=== PATIENT | female | born 1945 | race Caucasian/White ===

== ENCOUNTER 2017-11-22 15:55 | Emergency (ER) | payer MEDICARE ==
[2017-11-22 16:29] VITALS: BP 185/92
--- NOTE | 2017-11-22 17:21 | CT ---
Head CT Technique: Multiple axial sections through the brain were obtained. Intravenous contrast was not utilized. Comparison: Prior head CT exam of 02/22/15. Findings: Ventricles along with basal cisterns and sulci over the convexities are within normal limits for the patient's age. No abnormal parenchymal densities are seen. No evidence of intracranial hemorrhage. No midline shift or mass effect is seen. Small defect is identified within the medial right orbital wall most likely representing old fracture which has occurred in the interim from prior study. Small air-fluid level is noted within the sphenoid sinus. No acute calvarial abnormality is seen. Impression: 1. Defect within the medial right orbital wall most likely representing an old fracture which has occurred from prior study. 2. Small air-fluid level within the sphenoid sinus most likely due to retained secretions. 3. No acute intracranial abnormality is appreciated. Diagnostic code #2
--- NOTE | 2017-11-22 17:32 | EDM.PDOC ---
ED HPI GENERAL MEDICAL PROBLEM - General Chief Complaint: Lower Extremity Injury/Pain Stated Complaint: FELL OUTSIDE ON WEDNESDAY, NOW HAS HEADACHES/KNEE DARIEN Time Seen by Provider: 11/22/17 16:30 Source of Information: Reports: Patient, RN Notes Reviewed - History of Present Illness INITIAL COMMENTS - FREE TEXT/NARRATIVE: 72-year-old lady comes in having fallen 3 days ago. She either tripped or lost her balance falling forward injuring both knees and also injuring her right face. No LOC. She has developed a black eye on the right. She was wearing glasses. She states they were not broken. They did smash against her right face. She suffered pretty good bruise injury to her left knee. She is having pain both knees with ambulation. Been using a walker to get around. She is not developed worsening frontal headache. No nausea or vomiting. No chest pain or difficulty breathing. No hip or pelvis discomfort. 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: Acetaminophen, NSAIDS Knee Pain Score (Numeric/FACES): 5 - Related Data Allergies Allergy/AdvReac Type Severity Reaction Status Date / Time dog dander Allergy Other Verified 11/22/17 16:20 glucosamine Allergy Hives Verified 11/22/17 16:20 tetracycline Allergy Hives Verified 11/22/17 16:20 milk AdvReac Abdominal Verified 11/22/17 16:20 Pain Home Meds: Home Meds Albuterol Sulfate [Proventil Hfa] 2 puff INH Q4H PRN 09/15/16 [History] Ascorbic Acid [Vitamin C] 500 mg PO DAILY 09/15/16 [History] Calcium Carbonate/Vitamin D3 [Calcium 500 + Vit D 400] 1 tab PO DAILY 09/15/16 [ History] Clobetasol [Clobetasol 0.05%] 1 applic TOP BID PRN 09/15/16 [History] Cranberry 500 mg PO BID 09/15/16 [History] Cyanocobalamin (Vitamin B-12) [B-12] 500 mg PO BID 09/15/16 [History] Cyclobenzaprine HCl 10 mg PO TID PRN 09/15/16 [History] Flaxseed Oil [Flaxseed] 1,000 mg PO DAILY 09/15/16 [History] Lisinopril 20 mg PO DAILY 09/15/16 [History] Loratadine [Claritin] 10 mg PO DAILY 09/15/16 [History] Lysine 500 mg PO DAILY PRN 09/15/16 [History] Metoprolol Succinate 50 mg PO DAILY 09/15/16 [History] Montelukast [Singulair] 10 mg PO BEDTIME 09/15/16 [History] Multivitamin [Multi-Vitamin Daily] 1 tab PO DAILY 09/15/16 [History] [place]-3 Fatty Acids [Fish Oil] 1,000 mg PO DAILY 09/15/16 [History] Potassium 99 mg PO BID 09/15/16 [History] Simvastatin [Zocor] 20 mg PO BEDTIME 09/15/16 [History] Aspirin [Halfprin] 1 tab PO DAILY 09/16/16 [History] Ubidecarenone [Coq-10] 1 tab PO DAILY 09/16/16 [History] traMADol [Ultram] 50 mg PO Q8HR PRN #30 tab 11/22/17 [Rx] Past Medical History Cardiovascular History: Reports: High Cholesterol, Hypertension Respiratory History: Reports: Bronchitis, Recurrent Gastrointestinal History: Reports: [employer] History: Reports: Musculoskeletal History: Reports: Other (See Below) Other Musculoskeletal History: Chronic knee and ankle pain Neurological History: Reports: Head Trauma, Other (See Below) Other Neuro History: Concussion X2 in 2002 Oncologic (Cancer) History: Reports: None Dermatologic History: Reports: Other (See Below) Other Dermatologic History: herpes zoster - Infectious Disease History Infectious Disease History: Reports: Herpes - Past Surgical History HEENT Surgical History: Reports: Cataract Surgery GI Surgical History: Reports: None Female Surgical History: Reports: Section Social & Family History - Family History Family Medical History: Noncontributory - Tobacco Use Smoking Status *Q: Unknown Ever Smoked Second Hand Smoke Exposure: No - Caffeine Use Caffeine Use: Reports: None - Alcohol Use Days Per Week of Alcohol Use: 0 - Recreational Drug Use Recreational Drug Use: No Review of Systems - Review of Systems Review Of Systems: See Below Eyes: Reports: Other (This developed hematoma around right eye) Ears: Reports: No Symptoms. Denies: Dizziness Nose: Reports: No Symptoms Mouth/Throat: Reports: No Symptoms Respiratory: Denies: Shortness of Breath, Pleuritic Chest Pain Cardiovascular: Denies: Chest Pain GI/Abdominal: Denies: Abdominal Pain, Nausea, Vomiting Genitourinary: Reports: Painful Urination, Other (Voiding frequency) Musculoskeletal: Reports: Joint Pain (Bilateral knee discomfort) Skin: Reports: Bruising (Left knee, right periorbital area) Neurological: Reports: Headache ED EXAM, GENERAL - Physical Exam Exam: See Below General Appearance: Alert, Mild Distress Eye Exam: Bilateral Eye: PERRL Ears: Normal External Exam Nose: Normal Inspection Throat/Mouth: Normal Inspection Head: Facial Swelling (Minimal swelling right periorbital area, moderate bruising present), Other (No facial bony tenderness present) Neck: Supple, Full Range of Motion Respiratory/Chest: No Respiratory Distress, Lungs Clear, Normal Breath Sounds Cardiovascular: Regular Rate, Rhythm GI/Abdominal: Soft, Non-Tender Back Exam: No: CVA Tenderness (L), CVA Tenderness (R) Extremities: Normal Inspection, Joint Swelling (There is mild swelling of both knees moderate bruising left knee, tenderness medial aspect of the left knee and medial and lateral aspect of the right knee with moderate pain with motion of both knees, both joints stable). No: Leg Pain Neurological: Alert, Oriented Skin Exam: Warm, Dry, Normal Color Course - Vital Signs Last Recorded V/S: Last Vital Signs Temp 97.2 F 11/22/17 16:28 Pulse 65 11/22/17 16:28 Resp 18 11/22/17 16:28 BP 185/92 H 11/22/17 16:28 Pulse Ox 98 11/22/17 16:28 - Orders/Labs/Meds Labs: Laboratory Tests 11/22/17 Range/Units 16:57 Urine Color Light yellow (Yellow) Urine Appearance Clear (Clear) Urine pH 7.0 (5.0-8.0) Ur Specific [place] 1.015 (1.005-1.030) Urine Protein Negative (Negative) Urine Glucose (UA) Negative (Negative) Urine Ketones Negative (Negative) Urine Occult Blood Negative (Negative) Urine Nitrite Negative (Negative) Urine Bilirubin Negative (Negative) Urine Urobilinogen 0.2 (0.2-1.0) Ur Leukocyte Esterase Negative (Negative) Urine RBC Not seen (0-5) /hpf Urine WBC Not seen (0-5) /hpf Ur Epithelial Cells 0-5 (0-5) /hpf Urine Bacteria Rare (FEW) /hpf Urine Mucus Not seen (FEW) /hpf Meds: Medications Discontinued Medications Generic Name Dose Route Start Last Admin Trade Name Freq PRN Reason Stop Dose Admin Tramadol HCl 50 mg 11/22/17 18:10 Ultram PO 11/22/17 18:11 ONETIME ONE - Re-Assessments/Exams Free Text/Narrative Re-Assessment/Exam: 11/22/17 18:09. Urine is clear head CT normal. Left knee no fracture, right knee nondisplaced fracture right patella, will treat with knee immobilizer. This injury did occur 3 days ago. She is using a walker. We'll have her alternate Tylenol and tramadol as needed for pain. Discharge instructions as documented. Departure - Departure Time of Disposition: 18:12 Disposition: Home, Self-Care 01 Condition: Fair Clinical Impression: Fall Qualifiers: Encounter type: initial encounter Qualified Code(s): W19.XXXA - Unspecified fall, initial encounter Contusion of left knee Qualifiers: Encounter type: initial encounter Qualified Code(s): S80.02XA - Contusion of left knee, initial encounter Patella fracture Qualifiers: Encounter type: initial encounter Fracture type: closed Fracture morphology: unspecified fracture morphology Fracture alignment: nondisplaced Laterality: right Qualified Code(s): S82.001A - Unspecified fracture of right patella, initial encounter for closed fracture - Discharge Information Prescriptions: traMADol [Ultram] 50 mg PO Q8HR PRN #30 tab PRN Reason: Pain Referrals: Donna Dubon NP [Primary Care Provider] - Forms: ED Department Discharge Additional Instructions: Knee immobilizer. Rest and elevate leg and knee as much as possible continue to use walker to get about with the least amount weightbearing possible right leg and knee, you may alternate Tylenol and tramadol as needed for discomfort. See Jana Hatch or Dr Harris, Orthopedics, in about 3-5 days, call [phone] for appt. Return to ED as needed
--- NOTE | 2017-11-22 17:35 | CR ---
Left knee: Four views of the left knee were obtained. Comparison: No previous knee exam. Moderate to severe narrowing is seen within the lateral joint compartment. Mild narrowing of the medial joint compartment is seen. No joint effusion is seen. Bony structures are somewhat osteopenic. No acute fracture or dislocation is seen. Impression: 1. Degenerative change. Osteopenia. 2. Nothing acute is appreciated on left knee exam. Diagnostic code #2
--- NOTE | 2017-11-22 17:35 | CR ---
Right knee: Four views of the right knee were obtained. Fracture seen within the patella showing no significant displacement. Joint effusion is seen. Lateral joint space narrowing is noted with lateral osteophytes. Osteopenia is seen. No additional fracture or other abnormality is seen. Impression: 1. Patellar fracture and joint effusion. 2. Degenerative change and osteopenia. Diagnostic code #3
[2017-11-22] MEDS ORDERED: traMADol 50 MG Tab PO ONE (18:10)
== END 2017-11-22 18:42 | disposition home or self-care (01) ==
LOC: JD.ED 15:55
DX: S82.001A Unspecified fracture of right patella, initial encounter for closed fracture (principal); S80.02XA Contusion of left knee, initial encounter; S00.83XA Contusion of other part of head, initial encounter; W01.0XXA Fall on same level from slipping, tripping and stumbling without subsequent striking against object, initial encounter
CPT/HCPCS: 70450; 73564; 81001; 99284; A9270; 99283

== ENCOUNTER 2021-05-20 15:17 | Inpatient (IN) | payer MEDICARE ==
--- NOTE | 2021-05-20 15:59 | PCM.CONS ---
<Greg Gallo - Last Filed: 05/20/21 16:48> H&P History of Present Illness - General Date of Service: 05/20/21 Admit Problem/Dx: Admission Diagnosis/Problem Admission Diagnosis/Problem Hip fracture requiring operative repair Source of Information: Patient, Old Records, Provider, RN, RN Notes Reviewed History Limitations: Reports: No Limitations - History of Present Illness Initial Comments - Free Text/Narative: Hali Mccall is a 76 yo female patient of Dr. Harris who was admitted as a direct admit to the floor after a fall which occurred in [place] resulting in a right hip fracture. She reportedly rode the train to [place] where she was seen in the emergency room due to continued left ankle, right knee, and right hip pain. Twelve-lead EKG was obtained in their emergency room showing a sinus rhythm at [address] wave abnormalities. Borderline LAD. Right ankle and knee x-rays were obtained showing no acute osseous injuries or abnormalities. Pelvic CT was obtained showing impacted fracture deformity of the right femoral head neck junction. There are also small sclerotic lesions present in the ischial bones bilaterally measuring up to 5 mm and there is an 8 mm colonic lesion present within the sacrum. 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 Further assessment with bone scan or MRI may be helpful if the patient has history of primary malignancy. Lumbar spine CT was obtained showing severe compression deformity of T12 present with loss of 75% of the anterior vertebral body height. Moderate compression deformity is noted in the V1 vertebral body. No fracture lines are identified and these may be chronic. Correlation with physical exam for focal tenderness is recommended. Per the ED note multiple facilities in the region were contacted and were full. Plan was to hold the patient in the ED and try again the next day. Our facility was contacted but we did not have an orthopedist on-call until today. Patient was noted to already have an appointment today (05/20/2021) with Dr. Harris, orthopedic surgeon, regarding an unrelated left ankle pain. Patient elected to leave AMA with a prescription for Ultram for pain. She then followed up with him who directly admitted him for planned surgical fixation on 05/21/2021. Hospital medicine was consulted for preoperative risk stratification and post-operative medical care of the following listed medical conditions. At this time she is resting comf ortably in bed. Pain is controlled. She denies any any chest pain, shortness of breath, palpitations, nausea, or vomiting. She reports left ankle, right hip, and right knee pain. She carries a history of: Asthma, HLD, Pedal edema, HTN, recurrent bronchitis, GERD, chronic knee and ankle pain, history of concussion in 2002, herpes zoster, osteoarthritis, osteoporosis, anxiety. She was never a smoker. She is a full code. Her primary care provider is Collin Dubon NP. - Related Data Allergies/Adverse Reactions: Allergies Allergy/AdvReac Type Severity Reaction Status Date / Time cat dander Allergy Rash Verified 05/20/21 16:42 dog dander Allergy Other Verified 05/20/21 16:42 glucosamine Allergy Hives Verified 05/20/21 16:42 tetracycline Allergy Hives Verified 05/20/21 16:42 milk AdvReac Abdominal Verified 05/20/21 16:42 Pain Home Medications: Home Meds Albuterol Sulfate [Proventil Hfa] 2 puff INH Q4H PRN 09/15/16 [History] Ascorbic Acid [Vitamin C] 500 mg PO DAILY 09/15/16 [History] Clobetasol [Clobetasol 0.05%] 1 applic TOP BID PRN 09/15/16 [History] Cranberry 500 mg PO BID 09/15/16 [History] Cyanocobalamin (Vitamin B-12) [B-12] 500 mg PO BID 09/15/16 [History] Cyclobenzaprine HCl 10 mg PO TID PRN 09/15/16 [History] Flaxseed Oil [Flaxseed] 1,000 mg PO DAILY 09/15/16 [History] Lysine 500 mg PO DAILY PRN 09/15/16 [History] Metoprolol Succinate 50 mg PO BEDTIME 09/15/16 [History] Montelukast [Singulair] 10 mg PO BEDTIME 09/15/16 [History] Multivitamin [Multi-Vitamin Daily] 1 tab PO DAILY 09/15/16 [History] Weems-3 Fatty Acids [Fish Oil] 1,000 mg PO 12 09/15/16 [History] Potassium 99 mg PO BID 09/15/16 [History] Simvastatin [Zocor] 20 mg PO BEDTIME 09/15/16 [History] Aspirin [Halfprin] 81 mg PO BEDTIME 09/16/16 [History] Ubidecarenone [Coq-10] 1 tab PO 12 09/16/16 [History] traMADol [Ultram] 50 mg PO Q6H PRN #12 tab 05/19/21 [Rx] Cetirizine [ZyrTEC] 10 mg PO DAILY 05/20/21 [History] Cholecalciferol (Vitamin D3) [Vitamin D3] 1 tab PO DAILY 05/20/21 [History] Magnesium 1 tab PO DAILY 05/20/21 [History] Past Medical History HEENT History: Reports: None Cardiovascular History: Reports: High Cholesterol, Hypertension Respiratory History: Reports: Bronchitis, Recurrent Gastrointestinal History: Reports: GERD Genitourinary History: Reports: None [employer] History: Reports: Musculoskeletal History: Reports: Other (See Below) Other Musculoskeletal History: Chronic knee and ankle pain Neurological History: Reports: Head Trauma, Other (See Below) Other Neuro History: Concussion X2 in 2002 Psychiatric History: Reports: None Endocrine/Metabolic History: Reports: None Hematologic History: Reports: None Immunologic History: Reports: None Oncologic (Cancer) History: Reports: None Dermatologic History: Reports: Other (See Below) Other Dermatologic History: herpes zoster - Infectious Disease History Infectious Disease History: Reports: Herpes - Past Surgical History Head Surgeries/Procedures: Reports: None HEENT Surgical History: Reports: Cataract Surgery Cardiovascular Surgical History: Reports: None GI Surgical History: Reports: None Female Surgical History: Reports: Section Neurological Surgical History: Reports: None Musculoskeletal Surgical History: Reports: None Social & Family History - Family History Family Medical History: No Pertinent Family History - Caffeine Use Caffeine Use: Reports: None H&P Review of Systems - Review of Systems: Review Of Systems: See Below General: Reports: No Symptoms. Denies: Fever, Chills, Malaise, Weakness, Fatigue HEENT: Reports: No Symptoms. Denies: Headaches, Sore Throat Pulmonary: Reports: No Symptoms. Denies: Shortness of Breath, Wheezing, Pleuritic Chest Pain, Cough, Sputum Cardiovascular: Reports: Edema, Blood Pressure Problem. Denies: Chest Pain, Pal pitations, Dyspnea on Exertion Gastrointestinal: Denies: Abdominal Pain, Constipation, Diarrhea, Nausea, Vomiting Genitourinary: Reports: No Symptoms. Denies: Pain Musculoskeletal: Reports: Joint Pain (left ankle, right hip, right knee) Skin: Reports: No Symptoms. Denies: Cyanosis Psychiatric: Reports: No Symptoms. Denies: Confusion Neurological: Reports: Difficulty Walking (2/2 pain ), Gait Disturbance. Denies: Pre-Existing Deficit Hematologic/Lymphatic: Reports: No Symptoms. Denies: Anemia Immunologic: Reports: No Symptoms Exam - Exam Exam: See Below - Exam Quality Assessment: DVT Prophylaxis (SCDs). No: Supplemental Oxygen, Urinary Catheter General: Alert, Oriented, Cooperative. No: Mild Distress HEENT: Conjunctiva Clear, EACs Clear, Mucosa Moist & [place], Posterior Pharynx Clear Neck: Supple, Trachea Midline Lungs: Clear to Auscultation, Normal Respiratory Effort Cardiovascular: Regular Rate, Regular Rhythm GI/Abdominal Exam: Normal Bowel Sounds, Soft, Non-Tender, No Distention (Female) Exam: Deferred Rectal (Female) Exam: Deferred Back Exam: Normal Inspection, Full Range of Motion Extremities: Normal Inspection, Pedal Edema (3+), Leg Pain (left ankle, right hip and knee ), Limited Range of Motion (2/2 pain ) Peripheral Pulses: 2+: Radial (L), Radial (R) Skin: Warm, Dry, Intact Neurological: Cranial Nerves Intact (Grossly ) Neuro Extensive - Mental Status: Alert, Oriented x3, Normal Mood/Affect - Patient Data Result Diagrams: 05/20/21 16:02 05/20/21 16:02 Consult PN Assessment/Plan Procedures: Procedures AIRWAY INHALATION TREATMENT (09/15/16) ASSAY OF CREATININE (02/23/18) C-REACTIVE PROTEIN (10/08/16) CHEST X-RAY 2VW FRONTAL&LATL (09/15/16) COMPLETE CBC AUTOMATED (09/15/16) COMPLETE CBC W/AUTO DIFF WBC (09/15/16) COMPREHEN METABOLIC PANEL (09/15/16) CT ABD & PELV W/CONTRAST (02/23/18) CT HEAD/BRAIN W/O DYE (11/22/17) ELECTROCARDIOGRAM TRACING (09/15/16) ELECTROLYTE PANEL (09/15/16) EMERGENCY DEPT VISIT (11/22/17) EMERGENCY DEPT VISIT (09/15/16) EVALUATE PT USE OF INHALER (09/15/16) HYDRATE IV INFUSION ADD-ON (09/15/16) LAPAROSCOPY APPENDECTOMY (09/15/16) MEASURE BLOOD OXYGEN LEVEL (09/15/16) MEASURE BLOOD OXYGEN LEVEL (09/15/16) MRI JNT OF LWR EXTRE W/O DYE (04/09/21) POLYSOM 6/> YRS 4/> MOISES (02/15/19) PT EVALUATION (09/15/16) ROUTINE VENIPUNCTURE (02/23/18) THER/PROPH/DIAG IV INF INIT (09/15/16) TISSUE EXAM BY PATHOLOGIST (09/15/16) TX/PROPH/DG ADDL SEQ IV INF (09/15/16) URINALYSIS AUTO W/SCOPE (11/22/17) URINE BACTERIA CULTURE (03/15/14) X-RAY EXAM KNEE 4 OR MORE (11/22/17) X-RAY EXAM OF ABDOMEN (09/15/16) (1) Closed right hip fracture SNOMED Code(s): 682297168 Code(s): S72.001A - FRACTURE OF UNSP PART OF NECK OF RIGHT FEMUR, INIT Priority: High Current Visit: Yes Qualifiers: Encounter type: initial encounter Qualified Code(s): S72.001A - Fracture of unspecified part of neck of right femur, initial encounter for closed fracture (2) Osteoporosis SNOMED Code(s): 64582846 Code(s): M81.0 - AGE-RELATED OSTEOPOROSIS W/O CURRENT PATHOLOGICAL FRACTURE Priority: High Current Visit: Yes Qualifiers: Osteoporosis type: unspecified Presence of current pathological fracture: without current pathological fracture Qualified Code(s): M81.0 - Age-related osteoporosis without current pathological fracture (3) Asthma SNOMED Code(s): 202945402 Code(s): J45.909 - UNSPECIFIED ASTHMA, UNCOMPLICATED Priority: Medium Current Visit: No Qualifiers: Asthma severity: unspecified severity Asthma persistence: unspecified A sthma complication type: uncomplicated Qualified Code(s): J45.909 - Unspecified asthma, uncomplicated (4) HLD (hyperlipidemia) SNOMED Code(s): 72497301 Code(s): E78.5 - HYPERLIPIDEMIA, UNSPECIFIED Priority: Low Current Visit: No Qualifiers: Hyperlipidemia type: unspecified Qualified Code(s): E78.5 - Hyperlipidemia, unspecified (5) HTN (hypertension) SNOMED Code(s): 30129180 Code(s): I10 - ESSENTIAL (PRIMARY) HYPERTENSION Priority: Medium Current Visit: No Qualifiers: Hypertension type: unspecified Qualified Code(s): I10 - Essential (primary) hypertension (6) GERD (gastroesophageal reflux disease) SNOMED Code(s): 467426207 Code(s): K21.9 - GASTRO-ESOPHAGEAL REFLUX DISEASE WITHOUT ESOPHAGITIS Priority: Low Current Visit: No Qualifiers: Esophagitis presence: esophagitis presence not specified Qualified Code(s): K21.9 - Gastro-esophageal reflux disease without esophagitis (7) Chronic knee pain SNOMED Code(s): 0154438657 Code(s): M25.569 - PAIN IN UNSPECIFIED KNEE; G89.29 - OTHER CHRONIC PAIN Priority: Low Current Visit: No Qualifiers: Laterality: unspecified laterality Qualified Code(s): M25.569 - Pain in unspecified knee; G89.29 - Other chronic pain (8) Chronic ankle pain SNOMED Code(s): 56286523878015 Code(s): M25.579 - PAIN IN UNSPECIFIED ANKLE AND JOINTS OF UNSPECIFIED FOOT; G89.29 - OTHER CHRONIC PAIN Priority: Low Current Visit: No Qualifiers: Laterality: unspecified laterality Qualified Code(s): M25.579 - Pain in unspecified ankle and joints of unspecified foot; G89.29 - Other chronic pain (9) History of concussion SNOMED Code(s): 93901133384953009 Code(s): Z87.820 - PERSONAL HISTORY OF TRAUMATIC BRAIN INJURY Priority: Low Current Visit: No (10) History of herpes zoster SNOMED Code(s): 366073325748058 Code(s): Z86.19 - PERSONAL HISTORY OF OTHER INFECTIOUS AND PARASITIC DISEASES Priority: Low Current Visit: No (11) Osteoarthritis SNOMED Code(s): 281710951 Code(s): M19.90 - UNSPECIFIED OSTEOARTHRITIS, UNSPECIFIED SITE Priority: Medium Current Visit: Yes Qualifiers: Osteoarthritis location: multiple joints Osteoarthritis type: primary Qualified Code(s): M89.49 - Other hypertrophic osteoarthropathy, multiple sites (12) Abnormal CT scan SNOMED Code(s): 852804224 Code(s): R93.89 - ABNORMAL FINDINGS ON DX IMAGING OF OTH BODY STRUCTURES Priority: Medium Current Visit: Yes Problem List Initiated/Reviewed/Updated: Yes My Orders Last 24 Hours: My Active Orders 05/20/21 15:29 CBC WITH AUTO DIFF [HEME] Routine COMPREHENSIVE METABOLIC PN,CMP [CHEM] Routine TSH [CHEM] Routine TYPE AND SCREEN [BBK] Routine 05/20/21 15:51 CXR [Chest 2V] [CR] Routine Plan: Closed right hip fracture Osteoporosis Osteoarthritis Chronic knee pain Chronic ankle pain * SCDs for now with primary team to manage DVT prophylaxis from here out * Pain management per primary team * Surgery planned for 05/20/[address] Harris * NPO at midnight * Reconcile home medications * O2 if needed to keep saturations >90% * Check CBC, CMP, TSH * Check CXR * 12-Lead EKG from [facility] in [place] reviewed * IS * Bedrest until post-surgical * CM/SW for discharge planning * PT/OT post-surgically * Surgical Risk: * NSQIP: 3.4% serious complication, 3.9% any complication, 0.2% pneumonia, 0.2% cardiac complication, 0.1% * Based on the information present at this time, including patient's chronic conditions and age, she is low to moderate risk for total hip arthroplasty. Abnormal CT scan * Sclerotic lesions noted on ischial bones bilaterally from hip CT obtained in [place] * PCP follow-up Asthma * One view CXR now * PRN Duonebs * Home respiratory meds HLD (hyperlipidemia) HTN (hypertension) * No acute concerns * Home meds as ordered GERD (gastroesophageal reflux disease) * No acute concerns History of concussion * No acute concerns Anxiety * No acute concerns History of herpes zoster * No acute concerns Code status: Full code PCP: Collin Dubon NP DVT prophylaxis: SCDs Disposition: Patient admitted through orthopedics to the medical surgical floor for planned surgical fixation of right hip fracture on 05/21/2021. Hospitalist medicine team consulted for risk stratification and postoperative medical management. Length of stay likely 1 to 2 days. Thank you for allowing us to participate in the care of this patient!! Requesting Provider: Dr. Harris Date Consult Requested: 05/20/21 Patient History Reviewed: Yes Admission H&P Reviewed: Yes Notified Requestor: Yes <Fan Fenton Jr - Last Filed: 05/20/21 18:57> H&P History of Present Illness - General Admit Problem/Dx: Admission Diagnosis/Problem Admission Diagnosis/Problem Hip fracture requiring operative repair Exam - Vital Signs Vital Signs: Last Vital Signs Temp 98.2 F 05/20/21 15:51 Pulse 57 L 05/20/21 15:51 Resp 20 05/20/21 15:51 BP 131/60 05/20/21 15:51 Pulse Ox 94 L 05/20/21 15:51 - Patient Data Lab Results Last 24 hrs: Laboratory Results - last 24 hr 05/20/21 05/20/21 05/20/21 Range/Units 16:02 16:02 16:02 WBC 5.86 (3.98-10.04) K/mm3 RBC 4.26 (3.98-5.22) M/mm3 Hgb 12.2 D (11.2-15.7) gm/dl Hct 37.9 (34.1-44.9) % MCV 89.0 (79.4-94.8) fl MCH 28.6 (25.6-32.2) pg MCHC 32.2 (32.2-35.5) g/dl RDW Std Deviation 43.9 (36.4-46.3) fL Plt Count 169 L D (182-369) K/mm3 MPV 10.3 (9.4-12.3) fl Neut % (Auto) 59.0 (34.0-71.1) % Lymph % (Auto) 27.5 (19.3-51.7) % [place]rentiss % (Auto) 8.4 (4.7-12.5) % Eos % (Auto) 4.9 (0.7-5.8) Baso % (Auto) 0.2 (0.1-1.2) % Neut # (Auto) 3.46 (1.56-6.13) K/mm3 Lymph # (Auto) 1.61 (1.18-3.74) K/mm3 [place]iss # (Auto) 0.49 H (0.24-0.36) K/mm3 Eos # (Auto) 0.29 (0.04-0.36) K/mm3 Baso # (Auto) 0.01 (0.01-0.08) K/mm3 PT (9.7-12.0) SECONDS INR Sodium 139 (136-145) mEq/L Potassium 3.9 (3.5-5.1) mEq/L Chloride 103 (98-107) mEq/L Carbon Dioxide 26 (21-32) mEq/L Anion Gap 13.9 (5-15) BUN 16 (7-18) mg/dL Creatinine 0.8 (0.55-1.02) mg/dL Est Cr Clr Drug Dosing 54.25 mL/min Estimated GFR (MDRD) > 60 (>60) mL/min BUN/Creatinine Ratio 20.0 H (14-18) Glucose 92 (70-99) mg/dL Calcium 9.4 (8.5-10.1) mg/dL Total Bilirubin 2.4 H (0.2-1.0) mg/dL AST 19 (15-37) U/L ALT 18 (14-59) U/L Alkaline Phosphatase 42 L (46-116) U/L Total Protein 6.7 (6.4-8.2) g/dl Albumin 3.7 (3.4-5.0) g/dl Globulin 3.0 gm/dL Albumin/Globulin Ratio 1.2 (1-2) TSH 3rd Generation 2.149 (0.358-3.74) uIU/mL Blood Type A POSITIVE Gel Antibody Screen Negative 05/20/21 Range/Units 16:02 WBC (3.98-10.04) K/mm3 RBC (3.98-5.22) M/mm3 Hgb (11.2-15.7) gm/dl Hct (34.1-44.9) % MCV (79.4-94.8) fl MCH (25.6-32.2) pg MCHC (32.2-35.5) g/dl RDW Std Deviation (36.4-46.3) fL Plt Count (182-369) K/mm3 MPV (9.4-12.3) fl Neut % (Auto) (34.0-71.1) % Lymph % (Auto) (19.3-51.7) % [place] % (Auto) (4.7-12.5) % Eos % (Auto) (0.7-5.8) Baso % (Auto) (0.1-1.2) % Neut # (Auto) (1.56-6.13) K/mm3 Lymph # (Auto) (1.18-3.74) K/mm3 [place]rentiss # (Auto) (0.24-0.36) K/mm3 Eos # (Auto) (0.04-0.36) K/mm3 Baso # (Auto) (0.01-0.08) K/mm3 PT 10.6 (9.7-12.0) SECONDS INR 0.99 Sodium (136-145) mEq/L Potassium (3.5-5.1) mEq/L Chloride (98-107) mEq/L Carbon Dioxide (21-32) mEq/L Anion Gap (5-15) BUN (7-18) mg/dL Creatinine (0.55-1.02) mg/dL Est Cr Clr Drug Dosing mL/min Estimated GFR (MDRD) (>60) mL/min BUN/Creatinine Ratio (14-18) Glucose (70-99) mg/dL Calcium (8.5-10.1) mg/dL Total Bilirubin (0.2-1.0) mg/dL AST (15-37) U/L ALT (14-59) U/L Alkaline Phosphatase (46-116) U/L Total Protein (6.4-8.2) g/dl Albumin (3.4-5.0) g/dl Globulin gm/dL Albumin/Globulin Ratio (1-2) TSH 3rd Generation (0.358-3.74) uIU/mL Blood Type Gel Antibody Screen Result Diagrams: 05/20/21 16:02 05/20/21 16:02 Sepsis Event Note - Focused Exam Vital Signs: Vital Signs Temp Pulse Resp BP Pulse Ox 05/20/21 15:51 98.2 F 57 L 20 131/60 94 L Consult PN Assessment/Plan Procedures: Procedures AIRWAY INHALATION TREATMENT (09/15/16) ASSAY OF CREATININE (02/23/18) C-REACTIVE PROTEIN (10/08/16) CHEST X-RAY 2VW FRONTAL&LATL (09/15/16) COMPLETE CBC AUTOMATED (09/15/16) COMPLETE CBC W/AUTO DIFF WBC (09/15/16) COMPREHEN METABOLIC PANEL (09/15/16) CT ABD & PELV W/CONTRAST (02/23/18) CT HEAD/BRAIN W/O DYE (11/22/17) ELECTROCARDIOGRAM TRACING (09/15/16) ELECTROLYTE PANEL (09/15/16) EMERGENCY DEPT VISIT (11/22/17) EMERGENCY DEPT VISIT (09/15/16) EVALUATE PT USE OF INHALER (09/15/16) HYDRATE IV INFUSION ADD-ON (09/15/16) LAPAROSCOPY APPENDECTOMY (09/15/16) MEASURE BLOOD OXYGEN LEVEL (09/15/16) MEASURE BLOOD OXYGEN LEVEL (09/15/16) MRI JNT OF LWR EXTRE W/O DYE (04/09/21) POLYSOM 6/> YRS 4/> MOISES (02/15/19) PT EVALUATION (09/15/16) ROUTINE VENIPUNCTURE (02/23/18) THER/PROPH/DIAG IV INF INIT (09/15/16) TISSUE EXAM BY PATHOLOGIST (09/15/16) TX/PROPH/DG ADDL SEQ IV INF (09/15/16) URINALYSIS AUTO W/SCOPE (11/22/17) URINE BACTERIA CULTURE (03/15/14) X-RAY EXAM KNEE 4 OR MORE (11/22/17) X-RAY EXAM OF ABDOMEN (09/15/16) Plan: Case discussed in full. Agree with evaluation, assessment and plan.
[2021-05-20] MEDS ORDERED: Sodium Chloride 0.9% 10 ML Syringe FLUSH PRN (16:32)
[2021-05-20] MEDS ORDERED: Docusate Sodium 100 MG Cap PO PRN (16:32)
[2021-05-20] MEDS ORDERED: Albuterol/Ipratropium 3.0-0.5 MG/3 ML Neb Soln NEB PRN (16:32)
--- NOTE | 2021-05-20 16:35 | PCM.PREANE ---
Preanesthetic Assessment - Procedure Proposed Procedure: Right total hip arthroplasty - Anesthesia/Transfusion/Family Hx Anesthesia History: Prior Anesthesia Without Reaction Family History of Anesthesia Reaction: No Transfusion History: No Prior Transfusion(s) Intubation History: Unknown - Review of Systems General: No Symptoms Pulmonary: No Symptoms Cardiovascular: No Symptoms Gastrointestinal: No Symptoms Neurological: Headache (Occasional, no headache currently) Other: Reports: Easy Bruising (Pre-diabetic per patient), Neck Pain, Anxiety - Physical Assessment NPO Status Date: 05/20/21 NPO Status Time: 16:30 Vital Signs: 131/60 HR 57 98.3 20 RR 90% RA Height: 1.68 m Weight: 89.5 kg ASA Class: 3 Mental Status: Alert & Oriented x3 Airway Class: Mallampati = 1 Dentition: Reports: [place](s), [place] Thyro-Mental Finger Breadths: 3 Mouth Opening Finger Breadths: 3 ROM/Head Extension: Full Lungs: Clear to Auscultation, Normal Respiratory Effort Cardiovascular: Regular Rate, Regular Rhythm, No Murmurs - Lab Values: Laboratory Last Values WBC 5.86 K/mm3 (3.98-10.04) 05/20/21 16:02 RBC 4.26 M/mm3 (3.98-5.22) 05/20/21 16:02 Hgb 12.2 gm/dl (11.2-15.7) D 05/20/21 16:02 Hct 37.9 % (34.1-44.9) 05/20/21 16:02 MCV 89.0 fl (79.4-94.8) 05/20/21 16:02 MCH 28.6 pg (25.6-32.2) 05/20/21 16:02 MCHC 32.2 g/dl (32.2-35.5) 05/20/21 16:02 RDW Std Deviation 43.9 fL (36.4-46.3) 05/20/21 16:02 Plt Count 169 K/mm3 (182-369) L D 05/20/21 16:02 MPV 10.3 fl (9.4-12.3) 05/20/21 16:02 Neut % (Auto) 59.0 % (34.0-71.1) 05/20/21 16:02 Lymph % (Auto) 27.5 % (19.3-51.7) 05/20/21 16:02 [place] % (Auto) 8.4 % (4.7-12.5) 05/20/21 16:02 Eos % (Auto) 4.9 (0.7-5.8) 05/20/21 16:02 Baso % (Auto) 0.2 % (0.1-1.2) 05/20/21 16:02 Neut # (Auto) 3.46 K/mm3 (1.56-6.13) 05/20/21 16:02 Lymph # (Auto) 1.61 K/mm3 (1.18-3.74) 05/20/21 16:02 Wolfe # (Auto) 0.49 K/mm3 (0.24-0.36) H 05/20/21 16:02 Eos # (Auto) 0.29 K/mm3 (0.04-0.36) 05/20/21 16:02 Baso # (Auto) 0.01 K/mm3 (0.01-0.08) 05/20/21 16:02 Labs reviewed and okay to proceed, CMP also posted. Awaiting Type and Screen lab results - Imaging/EKG Impressions: EKG 05/19/21: NSR HR 68 Chest x-ray completed 05/20/21 but awaiting results, will review when results posted. - Allergies Allergies/Adverse Reactions: Allergies Allergy/AdvReac Type Severity Reaction Status Date / Time cat dander Allergy Rash Verified 05/20/21 16:42 dog dander Allergy Other Verified 05/20/21 16:42 glucosamine Allergy Hives Verified 05/20/21 16:42 tetracycline Allergy Hives Verified 05/20/21 16:42 milk AdvReac Abdominal Verified 05/20/21 16:42 Pain - Blood Blood Available: Yes - Anesthesia Plan Beta Michael: Metoprolol (Plan to take tomorrow morning (05/21/21)) - Acknowledgements Anesthesia Type Planned: General Anesthesia Pt an Appropriate Candidate for the Planned Anesthesia: Yes Alternatives and Risks of Anesthesia Discussed w Pt/Guardian: Yes Pt/Guardian Understands and Agrees with Anesthesia Plan: Yes Additional Comments: Patient prefers general over a spinal PreAnesthesia Questionnaire HEENT History: Reports: None Cardiovascular History: Reports: High Cholesterol, Hypertension Respiratory History: Reports: Asthma, Bronchitis, Recurrent Gastrointestinal History: Reports: GERD Genitourinary History: Reports: None 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 Hematologic History: Reports: None Immunologic History: Reports: None Oncologic (Cancer) History: Reports: None Dermatologic History: Reports: Other (See Below) Other Dermatologic History: herpes zoster - Infectious Disease History Infectious Disease History: Reports: Herpes - Past Surgical History Head Surgeries/Procedures: Reports: None HEENT Surgical History: Reports: Cataract Surgery Cardiovascular Surgical History: Reports: None GI Surgical History: Reports: Appendectomy Female Surgical History: Reports: Section, D&C Neurological Surgical History: Reports: None Musculoskeletal Surgical History: Reports: None - SUBSTANCE USE Tobacco Use Status *Q: Never Tobacco User Tobacco Use Within Last Twelve Months: No Second Hand Smoke Exposure: No Days Per Week of Alcohol Use: 0 Number of Drinks Per Day: 0 Total Drinks Per Week: 0 Recreational Drug Use History: No - HOME MEDS Home Medications: Home Meds Albuterol Sulfate [Proventil Hfa] 2 puff INH Q4H PRN 09/15/16 [History] Ascorbic Acid [Vitamin C] 500 mg PO DAILY 09/15/16 [History] Calcium Carbonate/Vitamin D3 [Calcium 500 + Vit D 400] 1 tab PO DAILY 09/15/16 [History] Clobetasol [Clobetasol 0.05%] 1 applic TOP BID PRN 09/15/16 [History] Cranberry 500 mg PO BID 09/15/16 [History] Cyanocobalamin (Vitamin B-12) [B-12] 500 mg PO BID 09/15/16 [History] Cyclobenzaprine HCl 10 mg PO TID PRN 09/15/16 [History] Flaxseed Oil [Flaxseed] 1,000 mg PO DAILY 09/15/16 [History] Lisinopril 20 mg PO DAILY 09/15/16 [History] Loratadine [Claritin] 10 mg PO DAILY 09/15/16 [History] Lysine 500 mg PO DAILY PRN 09/15/16 [History] Metoprolol Succinate 50 mg PO DAILY 09/15/16 [History] Montelukast [Singulair] 10 mg PO BEDTIME 09/15/16 [History] Multivitamin [Multi-Vitamin Daily] 1 tab PO DAILY 09/15/16 [History] [place]-3 Fatty Acids [Fish Oil] 1,000 mg PO DAILY 09/15/16 [History] Potassium 99 mg PO BID 09/15/16 [History] Simvastatin [Zocor] 20 mg PO BEDTIME 09/15/16 [History] Aspirin [Halfprin] 1 tab PO DAILY 09/16/16 [History] Ubidecarenone [Coq-10] 1 tab PO DAILY 09/16/16 [History] traMADol [Ultram] 50 mg PO Q8HR PRN #30 tab 11/22/17 [Rx] traMADol [Ultram] 50 mg PO Q6H PRN #12 tab 05/19/21 [Rx]
[2021-05-20] MEDS ORDERED: Cyclobenzaprine 10 MG Tab PO PRN (16:53)
[2021-05-20] MEDS ORDERED: Naloxone 0.4 MG/ML SDV IVPUSH PRN (16:53)
[2021-05-20] MEDS ORDERED: oxyCODONE 5 MG Tab PO PRN (16:53)
[2021-05-20] MEDS ORDERED: Ondansetron 4 MG/2 ML SDV IVPUSH PRN (16:53)
[2021-05-20] MEDS ORDERED: Albuterol 6.7 GM Inhaler INH PRN (17:00)
[2021-05-20] MEDS: traMADol 50 MG Tab PO PRN (18:16)
--- NOTE | 2021-05-20 18:50 | CR ---
Chest: Portable view of the chest was obtained. Comparison: Prior chest x-ray of 09/15/16. Heart size is within normal limits for portable technique. Tortuous thoracic aorta is seen. Lungs are clear with no acute parenchymal change. Bony structures are osteopenic. Impression: 1. Nothing acute is appreciated on portable chest x-ray. Diagnostic code #1
[2021-05-20] MEDS: Potassium Chloride 20 MEQ Tab.ER PO SCH (20:16)
[2021-05-20] MEDS: Montelukast 10 MG Tab PO SCH (20:16)
[2021-05-20] MEDS ORDERED: Metoprolol Succinate 50 MG Tab.ER PO SCH (21:00)
[2021-05-20] MEDS: Acetaminophen 325 MG Tab PO PRN (22:18)
[2021-05-21] MEDS: traMADol 50 MG Tab PO PRN ×2 (02:15→20:29)
--- NOTE | 2021-05-21 07:22 | PCM.CONSN ---
<Greg Gallo - Last Filed: 05/21/21 09:34> - General Info Date of Service: 05/21/21 Admission Dx/Problem (Free Text): Admission Diagnosis/Problem Admission Diagnosis/Problem Hip fracture requiring operative repair Functional Status: Reports: Pain Controlled, Tolerating Diet, Urinating, Incentive Spirometry. Denies: Ambulating, New Symptoms - Review of Systems General: Reports: No Symptoms. Denies: Fever, Weakness, Fatigue, Malaise, Chills HEENT: Reports: No Symptoms. Denies: Headaches, Sore Throat Pulmonary: Reports: No Symptoms. Denies: Shortness of Breath, Cough, Sputum, Wheezing Cardiovascular: Reports: Edema (Chronic ). Denies: Chest Pain, Palpitations, Dyspnea on Exertion Gastrointestinal: Reports: No Symptoms. Denies: Abdominal Pain, Constipation, Diarrhea, Nausea, Vomiting Genitourinary: Reports: No Symptoms. Denies: Pain Musculoskeletal: Reports: Leg Pain, Joint Pain (right hip, right knee, left ankle ) Skin: Reports: No Symptoms. Denies: Cyanosis Neurological: Reports: Difficulty Walking, Weakness, Gait Disturbance. Denies: Confusion, Dizziness, Headache, Numbness, Pre-Existing Deficit, Seizure, Syncope, Tingling Psychiatric: Reports: No Symptoms - Patient Data Vitals - Most Recent: Last Vital Signs Temp 97.9 F 05/20/21 20:26 Pulse 62 05/20/21 20:26 Resp 18 05/20/21 20:26 BP 146/99 H 05/20/21 20:26 Pulse Ox 95 05/20/21 20:26 Weight - Most Recent: 201 lb 4.8 oz I&O - Last 24 Hours: Intake & Output 05/20/21 05/21/21 05/21/21 22:59 06:59 14:59 Output Total 600 Balance -600 Lab Results Last 24 Hours: Laboratory Results - last 24 hr 05/20/21 05/20/21 05/20/21 Range/Units 16:02 16:02 16:02 WBC 5.86 (3.98-10.04) K/mm3 RBC 4.26 (3.98-5.22) M/mm3 Hgb 12.2 D (11.2-15.7) gm/dl Hct 37.9 (34.1-44.9) % MCV 89.0 (79.4-94.8) fl MCH 28.6 (25.6-32.2) pg MCHC 32.2 (32.2-35.5) g/dl RDW Std Deviation 43.9 (36.4-46.3) fL Plt Count 169 L D (182-369) K/mm3 MPV 10.3 (9.4-12.3) fl Neut % (Auto) 59.0 (34.0-71.1) % Lymph % (Auto) 27.5 (19.3-51.7) % [place] % (Auto) 8.4 (4.7-12.5) % Eos % (Auto) 4.9 (0.7-5.8) Baso % (Auto) 0.2 (0.1-1.2) % Neut # (Auto) 3.46 (1.56-6.13) K/mm3 Lymph # (Auto) 1.61 (1.18-3.74) K/mm3 [place] # (Auto) 0.49 H (0.24-0.36) K/mm3 Eos # (Auto) 0.29 (0.04-0.36) K/mm3 Baso # (Auto) 0.01 (0.01-0.08) K/mm3 PT (9.7-12.0) SECONDS INR Sodium 139 (136-145) mEq/L Potassium 3.9 (3.5-5.1) mEq/L Chloride 103 (98-107) mEq/L Carbon Dioxide 26 (21-32) mEq/L Anion Gap 13.9 (5-15) BUN 16 (7-18) mg/dL Creatinine 0.8 (0.55-1.02) mg/dL Est Cr Clr Drug Dosing 54.25 mL/min Estimated GFR (MDRD) > 60 (>60) mL/min BUN/Creatinine Ratio 20.0 H (14-18) Glucose 92 (70-99) mg/dL Calcium 9.4 (8.5-10.1) mg/dL Total Bilirubin 2.4 H (0.2-1.0) mg/dL AST 19 (15-37) U/L ALT 18 (14-59) U/L Alkaline Phosphatase 42 L (46-116) U/L Total Protein 6.7 (6.4-8.2) g/dl Albumin 3.7 (3.4-5.0) g/dl Globulin 3.0 gm/dL Albumin/Globulin Ratio 1.2 (1-2) TSH 3rd Generation 2.149 (0.358-3.74) uIU/mL SARS-CoV-2 RNA ([facility]) (NEGATIVE) MRSA (PCR) Blood Type A POSITIVE Gel Antibody Screen Negative 05/20/21 05/20/21 05/20/21 Range/Units 16:02 18:20 18:20 WBC (3.98-10.04) K/mm3 RBC (3.98-5.22) M/mm3 Hgb (11.2-15.7) gm/dl Hct (34.1-44.9) % MCV (79.4-94.8) fl MCH (25.6-32.2) pg MCHC (32.2-35.5) g/dl RDW Std Deviation (36.4-46.3) fL Plt Count (182-369) K/mm3 MPV (9.4-12.3) fl Neut % (Auto) (34.0-71.1) % Lymph % (Auto) (19.3-51.7) % [place] % (Auto) (4.7-12.5) % Eos % (Auto) (0.7-5.8) Baso % (Auto) (0.1-1.2) % Neut # (Auto) (1.56-6.13) K/mm3 Lymph # (Auto) (1.18-3.74) K/mm3 [place] # (Auto) (0.24-0.36) K/mm3 Eos # (Auto) (0.04-0.36) K/mm3 Baso # (Auto) (0.01-0.08) K/mm3 PT 10.6 (9.7-12.0) SECONDS INR 0.99 Sodium (136-145) mEq/L Potassium (3.5-5.1) mEq/L Chloride (98-107) mEq/L Carbon Dioxide (21-32) mEq/L Anion Gap (5-15) BUN (7-18) mg/dL Creatinine (0.55-1.02) mg/dL Est Cr Clr Drug Dosing mL/min Estimated GFR (MDRD) (>60) mL/min BUN/Creatinine Ratio (14-18) Glucose (70-99) mg/dL Calcium (8.5-10.1) mg/dL Total Bilirubin (0.2-1.0) mg/dL AST (15-37) U/L ALT (14-59) U/L Alkaline Phosphatase (46-116) U/L Total Protein (6.4-8.2) g/dl Albumin (3.4-5.0) g/dl Globulin gm/dL Albumin/Globulin Ratio (1-2) TSH 3rd Generation (0.358-3.74) uIU/mL SARS-CoV-2 RNA ([facility]) Negative (NEGATIVE) MRSA (PCR) Negative Blood Type Gel Antibody Screen Med Orders - Current: Current Medications Acetaminophen (Acetaminophen 325 Mg Tab) 650 mg PO Q4H PRN PRN Reason: Pain/Fever Last Admin: 05/20/21 22:18 Dose: 650 mg Documented by: Albuterol (Albuterol 0.083% 2.5 Mg/3 Ml Neb Soln) 2.5 mg NEB ONETIME ONE Stop: 05/21/21 10:31 Albuterol (Albuterol 6.7 Gm Inhaler) 0 gm INH Q4H PRN PRN Reason: Shortness of Breath Albuterol/Ipratropium (Albuterol/Ipratropium 3.0-0.5 Mg/3 Ml Neb Soln) 3 ml NEB QIDRT PRN PRN Reason: Shortness Of Breath/wheezing Cyanocobalamin (Cyanocobalamin (Vitamin B12) 1,000 Mcg Tab) 1,000 mcg PO DAILY [facility] Cyclobenzaprine HCl (Cyclobenzaprine 10 Mg Tab) 10 mg PO TID PRN PRN Reason: Spasms Docusate Sodium (Docusate Sodium 100 Mg Cap) 100 mg PO Q12H PRN PRN Reason: Constipation Magnesium Oxide (Magnesium Oxide 400 Mg Tab) 400 mg PO DAILY [facility] Metoprolol Succinate (Metoprolol Succinate 50 Mg Tab.Er) 50 mg PO BEDTIME CHETNA Metoprolol Succinate (Metoprolol Succinate 50 Mg Tab.Er) 50 mg PO ONETIME ONE Stop: 05/21/21 09:01 Montelukast Sodium (Montelukast 10 Mg Tab) 10 mg PO BEDTIME CHETNA Last Admin: 05/20/21 20:16 Dose: 10 mg Documented by: Multivitamins/Minerals/Vitamin C (Multivitamin Tab) 1 tab PO DAILY [facility] Naloxone HCl (Naloxone 0.4 Mg/Ml Sdv) 0.1 mg IVPUSH Q5M PRN PRN Reason: Oversedation Ondansetron HCl (Ondansetron 4 Mg/2 Ml Sdv) 4 mg IVPUSH Q6H PRN PRN Reason: Nausea/Vomiting Potassium Chloride (Potassium Chloride 20 Meq Tab.Er) 20 meq PO BID CHETNA Last Admin: 05/20/21 20:16 Dose: 20 meq Documented by: Sodium Chloride (Sodium Chloride 0.9% 10 Ml Syringe) 10 ml FLUSH ASDIRECTED PRN PRN Reason: Keep Vein Open Tramadol HCl (Tramadol 50 Mg Tab) 50 - 100 mg PO Q6H PRN PRN Reason: Pain Last Admin: 05/21/21 02:15 Dose: 50 mg Documented by: Discontinued Medications Oxycodone HCl (Oxycodone 5 Mg Tab) 5 - 10 mg PO Q6H PRN PRN Reason: Pain - Exam Quality Assessment: Supplemental Oxygen, DVT Prophylaxis General: Alert, Oriented, Cooperative, No Acute Distress HEENT: Pupils Equal, Pupils Reactive, Mucous Membr. Moist/[place] Neck: Supple, Trachea Midline Lungs: Clear to Auscultation, Normal Respiratory Effort Cardiovascular: Regular Rate, Regular Rhythm GI/Abdominal Exam: Normal Bowel Sounds, Soft, Non-Tender, No Distention (Female) Exam: Deferred Back Exam: Normal Inspection, Decreased Range of Motion Extremities: Non-Tender, Normal Capillary Refill, Pedal Edema (2-3+ with L>R), Limited Range of Motion (2/2 pain from hip fx ) Peripheral Pulses: 2+: Dorsalis Pedis (L), Dorsalis Pedis (R), 3+: Radial (L), Radial (R) Skin: Warm, Dry, Intact Neurological: No New Focal Deficit Psy/Mental Status: Alert, Normal Affect, Normal Mood Sepsis Event Note - Evaluation Sepsis Screening Result: No Definite Risk - Focused Exam Vital Signs: Vital Signs Temp Pulse Resp BP Pulse Ox 05/20/21 20:26 97.9 F 62 18 146/99 H 95 Consult PN Assessment/Plan Procedures: Procedures AIRWAY INHALATION TREATMENT (09/15/16) ASSAY OF CREATININE (02/23/18) C-REACTIVE PROTEIN (10/08/16) CHEST X-RAY 2VW FRONTAL&LATL (09/15/16) COMPLETE CBC AUTOMATED (09/15/16) COMPLETE CBC W/AUTO DIFF WBC (09/15/16) COMPREHEN METABOLIC PANEL (09/15/16) CT ABD & PELV W/CONTRAST (02/23/18) CT HEAD/BRAIN W/O DYE (11/22/17) ELECTROCARDIOGRAM TRACING (09/15/16) ELECTROLYTE PANEL (09/15/16) EMERGENCY DEPT VISIT (11/22/17) EMERGENCY DEPT VISIT (09/15/16) EVALUATE PT USE OF INHALER (09/15/16) HYDRATE IV INFUSION ADD-ON (09/15/16) LAPAROSCOPY APPENDECTOMY (09/15/16) MEASURE BLOOD OXYGEN LEVEL (09/15/16) MEASURE BLOOD OXYGEN LEVEL (09/15/16) MRI JNT OF LWR EXTRE W/O DYE (04/09/21) POLYSOM 6/> YRS 4/> MOISES (02/15/19) PT EVALUATION (09/15/16) ROUTINE VENIPUNCTURE (02/23/18) THER/PROPH/DIAG IV INF INIT (09/15/16) TISSUE EXAM BY PATHOLOGIST (09/15/16) TX/PROPH/DG ADDL SEQ IV INF (09/15/16) URINALYSIS AUTO W/SCOPE (11/22/17) URINE BACTERIA CULTURE (03/15/14) X-RAY EXAM KNEE 4 OR MORE (11/22/17) X-RAY EXAM OF ABDOMEN (09/15/16) (1) Closed right hip fracture SNOMED Code(s): 840213562 Code(s): S72.001A - FRACTURE OF UNSP PART OF NECK OF RIGHT FEMUR, INIT Priority: High Current Visit: Yes Qualifiers: Encounter type: initial encounter Qualified Code(s): S72.001A - Fracture of unspecified part of neck of right femur, initial encounter for closed fracture (2) Osteoporosis SNOMED Code(s): 23770965 Code(s): M81.0 - AGE-RELATED OSTEOPOROSIS W/O CURRENT PATHOLOGICAL FRACTURE Priority: High Current Visit: Yes Qualifiers: Osteoporosis type: unspecified Presence of current pathological fracture: without current pathological fracture Qualified Code(s): M81.0 - Age-related osteoporosis without current pathological fracture (3) Asthma SNOMED Code(s): 786176387 Code(s): J45.909 - UNSPECIFIED ASTHMA, UNCOMPLICATED Priority: Medium Current Visit: No Qualifiers: Asthma severity: unspecified severity Asthma persistence: unspecified Asthma complication type: uncomplicated Qualified Code(s): J45.909 - Un specified asthma, uncomplicated (4) HLD (hyperlipidemia) SNOMED Code(s): 81615885 Code(s): E78.5 - HYPERLIPIDEMIA, UNSPECIFIED Priority: Low Current Visit: No Qualifiers: Hyperlipidemia type: unspecified Qualified Code(s): E78.5 - Hyperlipidemia, unspecified (5) HTN (hypertension) SNOMED Code(s): 62212668 Code(s): I10 - ESSENTIAL (PRIMARY) HYPERTENSION Priority: Medium Current Visit: No Qualifiers: Hypertension type: unspecified Qualified Code(s): I10 - Essential (primary) hypertension (6) GERD (gastroesophageal reflux disease) SNOMED Code(s): 827388956 Code(s): K21.9 - GASTRO-ESOPHAGEAL REFLUX DISEASE WITHOUT ESOPHAGITIS Priority: Low Current Visit: No Qualifiers: Esophagitis presence: esophagitis presence not specified Qualified Code(s): K21.9 - Gastro-esophageal reflux disease without esophagitis (7) Chronic knee pain SNOMED Code(s): 1291475539 Code(s): M25.569 - PAIN IN UNSPECIFIED KNEE; G89.29 - OTHER CHRONIC PAIN Priority: Low Current Visit: No Qualifiers: Laterality: unspecified laterality Qualified Code(s): M25.569 - Pain in unspecified knee; G89.29 - Other chronic pain (8) Chronic ankle pain SNOMED Code(s): 45124160854113 Code(s): M25.579 - PAIN IN UNSPECIFIED ANKLE AND JOINTS OF UNSPECIFIED FOOT; G89.29 - OTHER CHRONIC PAIN Priority: Low Current Visit: No Qualifiers: Laterality: unspecified laterality Qualified Code(s): M25.579 - Pain in unspecified ankle and joints of unspecified foot; G89.29 - Other chronic pain (9) History of concussion SNOMED Code(s): 98667825960726398 Code(s): Z87.820 - PERSONAL HISTORY OF TRAUMATIC BRAIN INJURY Priority: Low Current Visit: No (10) History of herpes zoster SNOMED Code(s): 731070261055279 Code(s): Z86.19 - PERSONAL HISTORY OF OTHER INFECTIOUS AND PARASITIC DISEASES Priority: Low Current Visit: No (11) Osteoarthritis SNOMED Code(s): 116640167 Code(s): M19.90 - UNSPECIFIED OSTEOARTHRITIS, UNSPECIFIED SITE Priority: Medium Current Visit: Yes Qualifiers: Osteoarthritis location: multiple joints Osteoarthritis type: primary Qualified Code(s): M89.49 - Other hypertrophic osteoarthropathy, multiple sites (12) Abnormal CT scan SNOMED Code(s): 088356943 Code(s): R93.89 - ABNORMAL FINDINGS ON DX IMAGING OF OTH BODY STRUCTURES Priority: Medium Current Visit: Yes Problem List Initiated/Reviewed/Updated: Yes My Orders Last 24 Hours: My Active Orders 05/20/21 16:32 Height and Weight [RC] 06 Intake and Output [RC] 04,16 Oxygen Therapy [RC] ASDIRECTED Pulse Oximetry [RC] PRN RT Incentive Spirometry [RC] ASDIRECTED Vital Signs [RC] 03,09,15,21 Consult to Case Management/Area Secretary [CONS] Routine Albuterol/Ipratropium [DuoNeb 3.0-0.5 MG/3 ML] 3 ml NEB QIDRT PRN Docusate Sodium [Colace] 100 mg PO Q12H PRN Sodium Chloride 0.9% [Saline Flush] 10 ml FLUSH ASDIRECTED PRN Saline Lock Insert [OM.PC] Routine Resuscitation Status Routine 05/20/21 16:33 Antiembolic Devices [RC] QSHIFT Sequential Compression Device [OM.PC] Per Unit Routine 05/20/21 16:34 RT Aerosol Therapy [RC] ASDIRECTED 05/20/21 16:35 Precautions [COMM] Routine 05/20/21 16:40 PATIENT RETYPE [BBK] Routine 05/20/21 17:00 Albuterol [Proventil HFA] 0 gm INH Q4H PRN 05/20/21 21:00 Metoprolol Succinate [Toprol XL] 50 mg PO BEDTIME Montelukast [Singulair] 10 mg PO BEDTIME Potassium Chloride [Klor-Con M20] 20 meq PO BID 05/21/21 09:00 Cyanocobalamin (Vitamin B12) [Vitamin B12] 1,000 mcg PO DAILY Magnesium Oxide 400 mg PO DAILY Metoprolol Succinate [Toprol XL] 50 mg PO ONETIME ONE Multivitamins [Tab-A-Jessica] 1 tab PO DAILY 05/21/21 13:00 OT Evaluation and Treatment [CONS] Routine PT Evaluation and Treatment [CONS] Routine Plan: Closed right hip fracture Osteoporosis Osteoarthritis Chronic knee pain Chronic ankle pain * SCDs and PATRICK campuzano per primary team * Pain management per primary team * Surgery planned today with Dr. Harris * NPO at midnight; Resume regular diet thereafter * Reconciled home medications * O2 if needed to keep saturations >90% * CBC, CMP, Magnesium tomorrow * 12-Lead EKG from [facility] in [place] reviewed * IS * Bedrest until post-surgical * CM/SW for discharge planning * PT/OT post-surgically * Surgical Risk: * NSQIP: 3.4% serious complication, 3.9% any complication, 0.2% pneumonia, 0.2% cardiac complication, 0.1% * Based on the information present at this time, including patient's chronic conditions and age, she is low to moderate risk for total hip arthroplasty. Abnormal CT scan * Sclerotic lesions noted on ischial bones bilaterally from hip CT obtained in [place] * PCP follow-up Asthma * No acute findings on chest x-ray * PRN Duonebs * Home respiratory meds HLD (hyperlipidemia) HTN (hypertension) * No acute concerns * Home meds as ordered GERD (gastroesophageal reflux disease) * No acute concerns History of concussion * No acute concerns Anxiety * No acute concerns History of herpes zoster * No acute concerns Code status: Full code PCP: Collin Dubon NP DVT prophylaxis: SCDs Disposition: Patient admitted through orthopedics to the medical surgical floor for planned surgical fixation of right hip fracture on 05/21/2021. Hospitalist medicine team consulted for risk stratification and postoperative medical management. Length of stay likely 1 to 2 days. Today Hali is doing quite well. She continues to have pain although she has been utilizing a bedside commode. Labs were obtained yesterday and were very stable. Because of this will not recheck labs today and will wait till after surgery tomorrow. Chest x-ray was reviewed and shows no acute findings. Twelve-lead EKG from [place] was reviewed. She does have some bilateral pedal edema extending up into her knees and states that this does wax and wane but is chronic for her. She is on a homeopathic water pill. We discussed possibly giving her a single dose of Lasix however her I's and O's have been negative and her weight was with a bed scale. There is no signs of fluid overload on the chest x-ray and we will therefore hold off and consider Lasix postsurgically. She has no acute concerns. We discussed postoperative care and plan. All questions were answered. Her daughter was on the phone and patient did give permission to talk with her listening in. Plan for surgery today. Possible discharge tomorrow pending labs and PT OT evaluation. Thank you for allowing us to participate in the care of this patient!! <Fan Fenton Jr - Last Filed: 05/21/21 10:22> - Patient Data Vitals - Most Recent: Last Vital Signs Temp 97.9 F 05/21/21 08:17 Pulse 62 05/21/21 10:21 Resp 14 05/21/21 08:17 BP 122/66 05/21/21 10:21 Pulse Ox 94 L 05/21/21 08:17 I&O - Last 24 Hours: Intake & Output 05/20/21 05/21/21 05/21/21 22:59 06:59 14:59 Output Total 600 850 Balance -600 -850 Lab Results Last 24 Hours: Laboratory Results - last 24 hr 05/20/21 05/20/21 05/20/21 Range/Units 16:02 16:02 16:02 WBC 5.86 (3.98-10.04) K/mm3 RBC 4.26 (3.98-5.22) M/mm3 Hgb 12.2 D (11.2-15.7) gm/dl Hct 37.9 (34.1-44.9) % MCV 89.0 (79.4-94.8) fl MCH 28.6 (25.6-32.2) pg MCHC 32.2 (32.2-35.5) g/dl RDW Std Deviation 43.9 (36.4-46.3) fL Plt Count 169 L D (182-369) K/mm3 MPV 10.3 (9.4-12.3) fl Neut % (Auto) 59.0 (34.0-71.1) % Lymph % (Auto) 27.5 (19.3-51.7) % [place] % (Auto) 8.4 (4.7-12.5) % Eos % (Auto) 4.9 (0.7-5.8) Baso % (Auto) 0.2 (0.1-1.2) % Neut # (Auto) 3.46 (1.56-6.13) K/mm3 Lymph # (Auto) 1.61 (1.18-3.74) K/mm3 [place] # (Auto) 0.49 H (0.24-0.36) K/mm3 Eos # (Auto) 0.29 (0.04-0.36) K/mm3 Baso # (Auto) 0.01 (0.01-0.08) K/mm3 PT (9.7-12.0) SECONDS INR Sodium 139 (136-145) mEq/L Potassium 3.9 (3.5-5.1) mEq/L Chloride 103 (98-107) mEq/L Carbon Dioxide 26 (21-32) mEq/L Anion Gap 13.9 (5-15) BUN 16 (7-18) mg/dL Creatinine 0.8 (0.55-1.02) mg/dL Est Cr Clr Drug Dosing 54.25 mL/min Estimated GFR (MDRD) > 60 (>60) mL/min BUN/Creatinine Ratio 20.0 H (14-18) Glucose 92 (70-99) mg/dL Calcium 9.4 (8.5-10.1) mg/dL Total Bilirubin 2.4 H (0.2-1.0) mg/dL AST 19 (15-37) U/L ALT 18 (14-59) U/L Alkaline Phosphatase 42 L (46-116) U/L Total Protein 6.7 (6.4-8.2) g/dl Albumin 3.7 (3.4-5.0) g/dl Globulin 3.0 gm/dL Albumin/Globulin Ratio 1.2 (1-2) TSH 3rd Generation 2.149 (0.358-3.74) uIU/mL SARS-CoV-2 RNA ([facility]) (NEGATIVE) MRSA (PCR) Blood Type A POSITIVE Gel Antibody Screen Negative 05/20/21 05/20/21 05/20/21 Range/Units 16:02 18:20 18:20 WBC (3.98-10.04) K/mm3 RBC (3.98-5.22) M/mm3 Hgb (11.2-15.7) gm/dl Hct (34.1-44.9) % MCV (79.4-94.8) fl MCH (25.6-32.2) pg MCHC (32.2-35.5) g/dl RDW Std Deviation (36.4-46.3) fL Plt Count (182-369) K/mm3 MPV (9.4-12.3) fl Neut % (Auto) (34.0-71.1) % Lymph % (Auto) (19.3-51.7) % [place] % (Auto) (4.7-12.5) % Eos % (Auto) (0.7-5.8) Baso % (Auto) (0.1-1.2) % Neut # (Auto) (1.56-6.13) K/mm3 Lymph # (Auto) (1.18-3.74) K/mm3 [place] # (Auto) (0.24-0.36) K/mm3 Eos # (Auto) (0.04-0.36) K/mm3 Baso # (Auto) (0.01-0.08) K/mm3 PT 10.6 (9.7-12.0) SECONDS INR 0.99 Sodium (136-145) mEq/L Potassium (3.5-5.1) mEq/L Chloride (98-107) mEq/L Carbon Dioxide (21-32) mEq/L Anion Gap (5-15) BUN (7-18) mg/dL Creatinine (0.55-1.02) mg/dL Est Cr Clr Drug Dosing mL/min Estimated GFR (MDRD) (>60) mL/min BUN/Creatinine Ratio (14-18) Glucose (70-99) mg/dL Calcium (8.5-10.1) mg/dL Total Bilirubin (0.2-1.0) mg/dL AST (15-37) U/L ALT (14-59) U/L Alkaline Phosphatase (46-116) U/L Total Protein (6.4-8.2) g/dl Albumin (3.4-5.0) g/dl Globulin gm/dL Albumin/Globulin Ratio (1-2) TSH 3rd Generation (0.358-3.74) uIU/mL SARS-CoV-2 RNA ([facility]) Negative (NEGATIVE) MRSA (PCR) Negative Blood Type Gel Antibody Screen Med Orders - Current: Current Medications Acetaminophen (Acetaminophen 325 Mg Tab) 650 mg PO Q4H PRN PRN Reason: Pain/Fever Last Admin: 05/21/21 10:21 Dose: 650 mg Documented by: Albuterol (Albuterol 0.083% 2.5 Mg/3 Ml Neb Soln) 2.5 mg NEB ONETIME ONE Stop: 05/21/21 10:31 Albuterol (Albuterol 6.7 Gm Inhaler) 0 gm INH Q4H PRN PRN Reason: Shortness of Breath Albuterol/Ipratropium (Albuterol/Ipratropium 3.0-0.5 Mg/3 Ml Neb Soln) 3 ml NEB QIDRT PRN PRN Reason: Shortness Of Breath/wheezing Cyanocobalamin (Cyanocobalamin (Vitamin B12) 1,000 Mcg Tab) 1,000 mcg PO DAILY [facility] Cyclobenzaprine HCl (Cyclobenzaprine 10 Mg Tab) 10 mg PO TID PRN PRN Reason: Spasms Docusate Sodium (Docusate Sodium 100 Mg Cap) 100 mg PO Q12H PRN PRN Reason: Constipation Magnesium Oxide (Magnesium Oxide 400 Mg Tab) 400 mg PO DAILY [facility] Metoprolol Succinate (Metoprolol Succinate 50 Mg Tab.Er) 50 mg PO BEDTIME [facility] Montelukast Sodium (Montelukast 10 Mg Tab) 10 mg PO BEDTIME [facility] Last Admin: 05/20/21 20:16 Dose: 10 mg Documented by: Multivitamins/Minerals/Vitamin C (Multivitamin Tab) 1 tab PO DAILY [facility] Naloxone HCl (Naloxone 0.4 Mg/Ml Sdv) 0.1 mg IVPUSH Q5M PRN PRN Reason: Oversedation Ondansetron HCl (Ondansetron 4 Mg/2 Ml Sdv) 4 mg IVPUSH Q6H PRN PRN Reason: Nausea/Vomiting Potassium Chloride (Potassium Chloride 20 Meq Tab.Er) 20 meq PO BID [facility] Last Admin: 05/20/21 20:16 Dose: 20 meq Documented by: Sodium Chloride (Sodium Chloride 0.9% 10 Ml Syringe) 10 ml FLUSH ASDIRECTED PRN PRN Reason: Keep Vein Open Tramadol HCl (Tramadol 50 Mg Tab) 50 - 100 mg PO Q6H PRN PRN Reason: Pain Last Admin: 05/21/21 02:15 Dose: 50 mg Documented by: Discontinued Medications Metoprolol Succinate (Metoprolol Succinate 50 Mg Tab.Er) 50 mg PO ONETIME ONE Stop: 05/21/21 09:01 Last Admin: 05/21/21 10:21 Dose: 50 mg Documented by: Oxycodone HCl (Oxycodone 5 Mg Tab) 5 - 10 mg PO Q6H PRN PRN Reason: Pain Tranexamic Acid (Tranexamic Acid 1,000 Mg/10 Ml Amp) Confirm Administered Dose 1,000 mg .ROUTE .STK-MED ONE Stop: 05/21/21 09:30 Vancomycin HCl (Vancomycin 1 Gm Sdv) Confirm Administered Dose 1 gm .ROUTE .STK- MED ONE Stop: 05/21/21 09:30 Sepsis Event Note - Focused Exam Vital Signs: Vital Signs Temp Pulse Resp BP Pulse Ox 05/21/21 10:21 62 122/66 05/21/21 08:17 97.9 F 62 14 126/66 94 L 05/21/21 06:18 98.8 F 62 16 107/81 94 L Consult PN Assessment/Plan Procedures: Procedures AIRWAY INHALATION TREATMENT (09/15/16) ASSAY OF CREATININE (02/23/18) C-REACTIVE PROTEIN (10/08/16) CHEST X-RAY 2VW FRONTAL&LATL (09/15/16) COMPLETE CBC AUTOMATED (09/15/16) COMPLETE CBC W/AUTO DIFF WBC (09/15/16) COMPREHEN METABOLIC PANEL (09/15/16) CT ABD & PELV W/CONTRAST (02/23/18) CT HEAD/BRAIN W/O DYE (11/22/17) ELECTROCARDIOGRAM TRACING (09/15/16) ELECTROLYTE PANEL (09/15/16) EMERGENCY DEPT VISIT (11/22/17) EMERGENCY DEPT VISIT (09/15/16) EVALUATE PT USE OF INHALER (09/15/16) HYDRATE IV INFUSION ADD-ON (09/15/16) LAPAROSCOPY APPENDECTOMY (09/15/16) MEASURE BLOOD OXYGEN LEVEL (09/15/16) MEASURE BLOOD OXYGEN LEVEL (09/15/16) MRI JNT OF LWR EXTRE W/O DYE (04/09/21) POLYSOM 6/> YRS 4/> MOISES (02/15/19) PT EVALUATION (09/15/16) ROUTINE VENIPUNCTURE (02/23/18) THER/PROPH/DIAG IV INF INIT (09/15/16) TISSUE EXAM BY PATHOLOGIST (09/15/16) TX/PROPH/DG ADDL SEQ IV INF (09/15/16) URINALYSIS AUTO W/SCOPE (11/22/17) URINE BACTERIA CULTURE (03/15/14) X-RAY EXAM KNEE 4 OR MORE (11/22/17) X-RAY EXAM OF ABDOMEN (09/15/16) Plan: Case discussed in full. Agree with evaluation, assessment and plan.
[2021-05-21] MEDS ORDERED: Metoprolol Succinate 50 MG Tab.ER PO ONE (09:00)
[2021-05-21] MEDS: Acetaminophen 325 MG Tab PO PRN ×2 (10:21→18:44)
[2021-05-21] MEDS ORDERED: Albuterol 0.083% 2.5 MG/3 ML Neb Soln NEB ONE (10:30)
[2021-05-21] MEDS: Multivitamin Tab PO SCH (10:53)
[2021-05-21] MEDS: Magnesium Oxide 400 MG Tab PO SCH (10:53)
[2021-05-21] MEDS: Cyanocobalamin (Vitamin B12) 1,000 MCG Tab PO SCH (10:53)
[2021-05-21] MEDS: Potassium Chloride 20 MEQ Tab.ER PO SCH ×2 (10:54→20:30)
[2021-05-21] MEDS ORDERED: Ondansetron 4 MG/2 ML SDV ONE (11:41)
[2021-05-21] MEDS ORDERED: Propofol 200 MG/20 ML SDV ONE (11:41)
[2021-05-21] MEDS ORDERED: Rocuronium 50 MG/5 ML Vial ONE (11:41)
[2021-05-21] MEDS ORDERED: Lidocaine 1% 4 ML ONE (11:42)
[2021-05-21] MEDS ORDERED: fentaNYL 250 MCG/5 ML SDV ONE ×2 (11:42→12:38)
[2021-05-21] MEDS ORDERED: Bisacodyl 5 MG Tab PO PRN (11:49)
[2021-05-21] MEDS ORDERED: ceFAZolin 1 GM Vial ONE (12:10)
[2021-05-21] MEDS: Vancomycin 1 GM SDV ONE ×2 (12:41→12:58)
[2021-05-21] MEDS: Morphine 8 MG, EPINEPHrine 0.3 MG, Cefuroxime 750 MG, Ketorolac 30 MG, Sodium Chloride ... PRN ×10 (12:47→13:05)
[2021-05-21] MEDS ORDERED: Lactated Ringers 1,000 ML ONE (12:49)
[2021-05-21] MEDS ORDERED: ePHEDrine 50 MG/ML SDV ONE (12:53)
[2021-05-21] MEDS ORDERED: Morphine 2 MG/ML SYRINGE IVPUSH PRN (13:00)
[2021-05-21] MEDS ORDERED: Magnesium Hydroxide 400 MG/5 ML Susp 30 ML Cup PO PRN (13:00)
[2021-05-21] MEDS ORDERED: Sennosides 8.6 MG Tab PO PRN (13:00)
[2021-05-21] MEDS ORDERED: Ketorolac 15 MG/ML SDV IVPUSH PRN (13:00)
[2021-05-21] MEDS ORDERED: Bupivacaine 0.25% 10 ML SDV ONE (13:13)
[2021-05-21] MEDS ORDERED: Ketorolac 30 MG/ML SDV ONE (13:37)
[2021-05-21] MEDS ORDERED: fentaNYL 100 MCG/2 ML SDV IVPUSH PRN (13:46)
--- NOTE | 2021-05-21 13:47 | PCM.POSTAN ---
POST ANESTHESIA ASSESSMENT - MENTAL STATUS Mental Status: Alert, Oriented - VITAL SIGNS Vital Signs: Last Vital Signs Temp 36.6 C 05/21/21 08:17 Pulse 62 05/21/21 10:21 Resp 14 05/21/21 08:17 BP 122/66 05/21/21 10:21 Pulse Ox 94 L 05/21/21 08:17 - RESPIRATORY Respiratory Status: Respiratory Rate WNL, Airway Patent, O2 Saturation Stable, Supplemental Oxygen - CARDIOVASCULAR CV Status: Pulse Rate WNL, Blood Pressure Stable - GASTROINTESTINAL GI Status: No Symptoms - PAIN Pain Score: 0 - POST OP HYDRATION Hydration Status: Adequate & Stable - OBSERVATIONS Free Text/Narrative:: NO ANESTHESIA COMPLICATIONS NOTED
--- NOTE | 2021-05-21 14:50 | CR ---
Pelvis and right hip: AP view of the pelvis was obtained as well as crosstable lateral views of the right hip. Comparison: No prior pelvis or hip study is available. Recently placed right hip prosthesis is noted. Components are aligned. Soft tissue air is seen. Degenerative change is partially seen within the lower lumbar spine. Phleboliths are noted within the pelvis. Mild vascular calcification is also noted. Impression: 1. Satisfactory postop radiographic appearance of recently placed right hip prosthesis. 2. Other findings which are most likely incidental as described above. Diagnostic code #2
[2021-05-21] MEDS: ceFAZolin 2 GM in Premix Bag 1 BAG IV SCH (20:28)
[2021-05-21] MEDS: Famotidine 20 MG Tab PO SCH (20:29)
[2021-05-21] MEDS: Montelukast 10 MG Tab PO SCH (20:30)
[2021-05-21] MEDS ORDERED: Docusate Sodium 100 MG Cap PO SCH (21:00)
[2021-05-22] MEDS: Acetaminophen 325 MG Tab PO PRN ×2 (01:03→14:18)
[2021-05-22] MEDS: traMADol 50 MG Tab PO PRN ×2 (04:13→10:18)
[2021-05-22] MEDS: ceFAZolin 2 GM in Premix Bag 1 BAG IV SCH ×2 (04:13→12:07)
--- NOTE | 2021-05-22 07:36 | PCM.CONSN ---
<Greg Gallo - Last Filed: 05/22/21 11:49> - General Info Date of Service: 05/22/21 Admission Dx/Problem (Free Text): Admission Diagnosis/Problem Admission Diagnosis/Problem Hip fracture requiring operative repair Functional Status: Reports: Pain Controlled, Tolerating Diet, Ambulating, Urinating, Incentive Spirometry. Denies: New Symptoms - Review of Systems General: Reports: No Symptoms. Denies: Fever, Weakness, Fatigue, Malaise, Chills HEENT: Reports: No Symptoms. Denies: Headaches, Sore Throat Pulmonary: Reports: No Symptoms. Denies: Shortness of Breath, Cough, Sputum, Wheezing Cardiovascular: Reports: Edema. Denies: Chest Pain, Palpitations, Dyspnea on Exertion Gastrointestinal: Reports: No Symptoms. Denies: Abdominal Pain, Constipation, Diarrhea, Nausea, Vomiting Genitourinary: Reports: No Symptoms. Denies: Pain Musculoskeletal: Reports: Leg Pain, Joint Pain (Left ankle, right knee, Right hip ) Skin: Reports: No Symptoms Neurological: Reports: Difficulty Walking, Gait Disturbance. Denies: Confusion, Dizziness, Headache, Numbness, Syncope, Tingling, Weakness Psychiatric: Reports: No Symptoms - Patient Data Vitals - Most Recent: Last Vital Signs Temp 98.8 F 05/22/21 04:25 Pulse 71 05/22/21 04:25 Resp 18 05/22/21 04:25 BP 95/82 05/22/21 04:25 Pulse Ox 96 05/22/21 04:25 Weight - Most Recent: 202 lb 8 oz I&O - Last 24 Hours: Intake & Output 05/21/21 05/22/21 05/22/21 22:59 06:59 14:59 Intake Total 250 98 Output Total 200 1100 Balance 50 -1002 Lab Results Last 24 Hours: Laboratory Results - last 24 hr 05/22/21 05/22/21 Range/Units 05:15 05:15 WBC 5.85 (3.98-10.04) K/mm3 RBC 3.61 L (3.98-5.22) M/mm3 Hgb 10.3 L D (11.2-15.7) gm/dl Hct 32.6 L (34.1-44.9) % MCV 90.3 (79.4-94.8) fl MCH 28.5 (25.6-32.2) pg MCHC 31.6 L (32.2-35.5) g/dl RDW Std Deviation 44.3 (36.4-46.3) fL Plt Count 167 L (182-369) K/mm3 MPV 10.9 (9.4-12.3) fl Neut % (Auto) 69.0 (34.0-71.1) % Lymph % (Auto) 19.1 L (19.3-51.7) % [place] % (Auto) 6.7 (4.7-12.5) % Eos % (Auto) 5.0 (0.7-5.8) Baso % (Auto) 0.2 (0.1-1.2) % Neut # (Auto) 4.04 (1.56-6.13) K/mm3 Lymph # (Auto) 1.12 L (1.18-3.74) K/mm3 [place] # (Auto) 0.39 H (0.24-0.36) K/mm3 Eos # (Auto) 0.29 (0.04-0.36) K/mm3 Baso # (Auto) 0.01 (0.01-0.08) K/mm3 Sodium 139 (136-145) mEq/L Potassium 4.4 (3.5-5.1) mEq/L Chloride 105 (98-107) mEq/L Carbon Dioxide 26 (21-32) mEq/L Anion Gap 12.4 (5-15) BUN 15 (7-18) mg/dL Creatinine 1.1 H (0.55-1.02) mg/dL Est Cr Clr Drug Dosing 39.46 mL/min Estimated GFR (MDRD) 48 (>60) mL/min BUN/Creatinine Ratio 13.6 L (14-18) Glucose 110 H (70-99) mg/dL Calcium 8.4 L (8.5-10.1) mg/dL Magnesium 1.9 (1.8-2.4) mg/dL Total Bilirubin 1.0 (0.2-1.0) mg/dL AST 27 (15-37) U/L ALT 21 (14-59) U/L Alkaline Phosphatase 35 L (46-116) U/L Total Protein 5.7 L (6.4-8.2) g/dl Albumin 2.9 L (3.4-5.0) g/dl Globulin 2.8 gm/dL Albumin/Globulin Ratio 1.0 (1-2) Med Orders - Current: Current Medications Acetaminophen (Acetaminophen 325 Mg Tab) 650 mg PO Q4H PRN PRN Reason: Pain/Fever Last Admin: 05/22/21 01:03 Dose: 650 mg Documented by: Albuterol (Albuterol 6.7 Gm Inhaler) 0 gm INH Q4H PRN PRN Reason: Shortness of Breath Albuterol/Ipratropium (Albuterol/Ipratropium 3.0-0.5 Mg/3 Ml Neb Soln) 3 ml NEB QIDRT PRN PRN Reason: Shortness Of Breath/wheezing Aspirin (Aspirin 325 Mg Tab.Ec) 325 mg PO BID [facility] Bisacodyl (Bisacodyl 5 Mg Tab) 5 mg PO DAILY PRN PRN Reason: Constipation Cyanocobalamin (Cyanocobalamin (Vitamin B12) 1,000 Mcg Tab) 1,000 mcg PO DAILY [facility] Last Admin: 05/21/21 10:53 Dose: Not Given Documented by: Cyclobenzaprine HCl (Cyclobenzaprine 10 Mg Tab) 10 mg PO TID PRN PRN Reason: Spasms Docusate Sodium (Docusate Sodium 100 Mg Cap) 100 mg PO BID [facility] Last Admin: 05/21/21 20:30 Dose: 100 mg Documented by: Famotidine (Famotidine 20 Mg Tab) 20 mg PO Q12H [facility] Last Admin: 05/21/21 20:29 Dose: 20 mg Documented by: Fentanyl (Fentanyl 100 Mcg/2 Ml Sdv) 50 mcg IVPUSH Q5M PRN PRN Reason: Pain Cefazolin Sodium/Dextrose 2 gm (/ Premix) 50 mls @ 100 mls/hr IV Q8H [facility] Stop: 05/22/21 12:29 Last Admin: 05/22/21 04:13 Dose: 100 mls/hr Documented by: Ketorolac Tromethamine (Ketorolac 15 Mg/Ml Sdv) 15 mg IVPUSH Q6H PRN PRN Reason: Pain Last Admin: 05/21/21 16:36 Dose: 15 mg Documented by: Magnesium Hydroxide (Magnesium Hydroxide 400 Mg/5 Ml Susp 30 Ml Cup) 30 ml PO BID PRN PRN Reason: Constipation Magnesium Oxide (Magnesium Oxide 400 Mg Tab) 400 mg PO DAILY [facility] Last Admin: 05/21/21 10:53 Dose: Not Given Documented by: Metoprolol Succinate (Metoprolol Succinate 50 Mg Tab.Er) 50 mg PO BEDTIME [facility] Montelukast Sodium (Montelukast 10 Mg Tab) 10 mg PO BEDTIME [facility] Last Admin: 05/21/21 20:30 Dose: 10 mg Documented by: Morphine Sulfate (Morphine 2 Mg/Ml Syringe) 2 mg IVPUSH Q2H PRN PRN Reason: Breakthrough Pain Multivitamins/Minerals/Vitamin C (Multivitamin Tab) 1 tab PO DAILY [facility] Last Admin: 05/21/21 10:53 Dose: Not Given Documented by: Naloxone HCl (Naloxone 0.4 Mg/Ml Sdv) 0.1 mg IVPUSH Q5M PRN PRN Reason: Oversedation Ondansetron HCl (Ondansetron 4 Mg/2 Ml Sdv) 4 mg IVPUSH Q6H PRN PRN Reason: Nausea/Vomiting Potassium Chloride (Potassium Chloride 20 Meq Tab.Er) 20 meq PO BID [facility] Last Admin: 05/21/21 20:30 Dose: 20 meq Documented by: Senna (Sennosides 8.6 Mg Tab) 8.6 mg PO BID PRN PRN Reason: Constipation Sodium Chloride (Sodium Chloride 0.9% 10 Ml Syringe) 10 ml FLUSH ASDIRECTED PRN PRN Reason: Keep Vein Open Tramadol HCl (Tramadol 50 Mg Tab) 50 - 100 mg PO Q6H PRN PRN Reason: Pain Last Admin: 05/22/21 04:13 Dose: 50 mg Documented by: Discontinued Medications Albuterol (Albuterol 0.083% 2.5 Mg/3 Ml Neb Soln) 2.5 mg NEB ONETIME ONE Stop: 05/21/21 10:31 Last Admin: 05/21/21 15:20 Dose: Not Given Documented by: Bupivacaine HCl (Bupivacaine 0.25% 10 Ml Sdv) Confirm Administered Dose 30 ml .ROUTE .STK-MED ONE Stop: 05/21/21 13:14 Last Admin: 05/21/21 13:15 Dose: 20 ml Documented by: Cefazolin Sodium (Cefazolin 1 Gm Vial) Confirm Administered Dose 2 gm .ROUTE .STK-MED ONE Stop: 05/21/21 12:11 Morphine Sulfate 8 mg/Epinephrine HCl 0.3 mg/Cefuroxime Sodium 750 mg/Ketorolac Tromethamine 30 mg/Sodium Chloride 7.9 ml 0 mg .XX ASDIRECTED PRN PRN Reason: Pain Stop: 05/21/21 18:00 Last Admin: 05/21/21 13:05 Dose: 788.3 mg Documented by: Docusate Sodium (Docusate Sodium 100 Mg Cap) 100 mg PO Q12H PRN PRN Reason: Constipation Ephedrine Sulfate (Ephedrine 50 Mg/Ml Sdv) Confirm Administered Dose 50 mg .ROUTE .STK-MED ONE Stop: 05/21/21 12:54 Fentanyl (Fentanyl 250 Mcg/5 Ml Sdv) Confirm Administered Dose 250 mcg .ROUTE . STK-MED ONE Stop: 05/21/21 11:43 Fentanyl (Fentanyl 250 Mcg/5 Ml Sdv) Confirm Administered Dose 250 mcg .ROUTE .STK-MED ONE Stop: 05/21/21 12:39 Lidocaine HCl (Xylocaine-Mpf 1%) Confirm Administered Dose 4 mls @ as directed .ROUTE .STK-MED ONE Stop: 05/21/21 11:43 Lactated Ringer's (Ringers, Lactated) Confirm Administered Dose 1,000 mls @ as directed .ROUTE .STK-MED ONE Stop: 05/21/21 12:50 Ketorolac Tromethamine (Ketorolac 30 Mg/Ml Sdv) Confirm Administered Dose 30 mg .ROUTE .STK-MED ONE Stop: 05/21/21 13:38 Metoprolol Succinate (Metoprolol Succinate 50 Mg Tab.Er) 50 mg PO ONETIME ONE Stop: 05/21/21 09:01 Last Admin: 05/21/21 10:21 Dose: 50 mg Documented by: Ondansetron HCl (Ondansetron 4 Mg/2 Ml Sdv) Confirm Administered Dose 4 mg .ROUTE .STK-MED ONE Stop: 05/21/21 11:42 Oxycodone HCl (Oxycodone 5 Mg Tab) 5 - 10 mg PO Q6H PRN PRN Reason: Pain Propofol (Propofol 200 Mg/20 Ml Sdv) Confirm Administered Dose 200 mg .ROUTE .STK-MED ONE Stop: 05/21/21 11:42 Rocuronium [place] (Rocuronium 50 Mg/5 Ml Vial) Confirm Administered Dose 50 mg .ROUTE .STK-MED ONE Stop: 05/21/21 11:42 Tranexamic Acid (Tranexamic Acid 1,000 Mg/10 Ml Amp) Confirm Administered Dose 1,000 mg .ROUTE .STK-MED ONE Stop: 05/21/21 09:30 Last Admin: 05/21/21 12:58 Dose: 1,000 mg Documented by: Vancomycin HCl (Vancomycin 1 Gm Sdv) Confirm Administered Dose 1 gm .ROUTE .STK- MED ONE Stop: 05/21/21 09:30 Last Admin: 05/21/21 12:58 Dose: 1 gm Documented by: - Exam Quality Assessment: DVT Prophylaxis. No: Supplemental Oxygen, Urine Catheter General: Alert, Oriented, Cooperative HEENT: Pupils Equal, Pupils Reactive, Mucous Membr. Moist/[place] Neck: Supple, Trachea Midline Lungs: Clear to Auscultation, Normal Respiratory Effort Cardiovascular: Regular Rate, Regular Rhythm GI/Abdominal Exam: Normal Bowel Sounds, Soft, Non-Tender, No Distention (Female) Exam: Deferred Back Exam: Normal Inspection, Full Range of Motion Extremities: Normal Range of Motion, Non-Tender, Normal Capillary Refill, Leg Pain, Limited Range of Motion, Other (Bandage in place on right leg. Bandage is dry and intact. ) Peripheral Pulses: 2+: Dorsalis Pedis (L), Dorsalis Pedis (R), 3+: Radial (L), Radial (R) Skin: Warm, Dry, Intact Wound/Incisions: Dressing Dry and Intact Neurological: No New Focal Deficit Psy/Mental Status: Alert, Normal Affect, Normal Mood Sepsis Event Note - Evaluation Sepsis Screening Result: No Definite Risk - Focused Exam Vital Signs: Vital Signs Temp Pulse Resp BP Pulse Ox 05/22/21 04:25 98.8 F 71 18 95/82 96 05/22/21 01:05 98.8 F 70 18 96/71 90 L 05/21/21 20:27 98.8 F 69 16 125/93 H 93 L Consult PN Assessment/Plan POD#: 1 Procedures: Procedures AIRWAY INHALATION TREATMENT (09/15/16) ASSAY OF CREATININE (02/23/18) C-REACTIVE PROTEIN (10/08/16) CHEST X-RAY 2VW FRONTAL&LATL (09/15/16) COMPLETE CBC AUTOMATED (09/15/16) COMPLETE CBC W/AUTO DIFF WBC (09/15/16) COMPREHEN METABOLIC PANEL (09/15/16) CT ABD & PELV W/CONTRAST (02/23/18) CT HEAD/BRAIN W/O DYE (11/22/17) ELECTROCARDIOGRAM TRACING (09/15/16) ELECTROLYTE PANEL (09/15/16) EMERGENCY DEPT VISIT (11/22/17) EMERGENCY DEPT VISIT (09/15/16) EVALUATE PT USE OF INHALER (09/15/16) HYDRATE IV INFUSION ADD-ON (09/15/16) LAPAROSCOPY APPENDECTOMY (09/15/16) MEASURE BLOOD OXYGEN LEVEL (09/15/16) MEASURE BLOOD OXYGEN LEVEL (09/15/16) MRI JNT OF LWR EXTRE W/O DYE (04/09/21) POLYSOM 6/> YRS 4/> MOISES (02/15/19) PT EVALUATION (09/15/16) ROUTINE VENIPUNCTURE (02/23/18) THER/PROPH/DIAG IV INF INIT (09/15/16) TISSUE EXAM BY PATHOLOGIST (09/15/16) TX/PROPH/DG ADDL SEQ IV INF (09/15/16) URINALYSIS AUTO W/SCOPE (11/22/17) URINE BACTERIA CULTURE (03/15/14) X-RAY EXAM KNEE 4 OR MORE (11/22/17) X-RAY EXAM OF ABDOMEN (09/15/16) (1) Closed right hip fracture SNOMED Code(s): 766948811 Code(s): S72.001A - FRACTURE OF UNSP PART OF NECK OF RIGHT FEMUR, INIT Priority: High Qualifiers: Encounter type: initial encounter Qualified Code(s): S72.001A - Fracture of unspecified part of neck of right femur, initial encounter for closed fracture (2) Osteoporosis SNOMED Code(s): 02418182 Code(s): M81.0 - AGE-RELATED OSTEOPOROSIS W/O CURRENT PATHOLOGICAL FRACTURE Priority: High Qualifiers: Osteoporosis type: unspecified Presence of current pathological fracture: without current pathological fracture Qualified Code(s): M81.0 - Age-related osteoporosis without current pathological fracture (3) Asthma SNOMED Code(s): 949348332 Code(s): J45.909 - UNSPECIFIED ASTHMA, UNCOMPLICATED Priority: Medium Qualifiers: Asthma severity: unspecified severity Asthma persistence: unspecified Asthma complication type: uncomplicated Qualified Code(s): J45.909 - Unspecified asthma, uncomplicated (4) HLD (hyperlipidemia) SNOMED Code(s): 83475740 Code(s): E78.5 - HYPERLIPIDEMIA, UNSPECIFIED Priority: Low Qualifiers: Hyperlipidemia type: unspecified Qualified Code(s): E78.5 - Hyperlipidemia, unspecified (5) HTN (hypertension) SNOMED Code(s): 44959845 Code(s): I10 - ESSENTIAL (PRIMARY) HYPERTENSION Priority: Medium Qualifiers: Hypertension type: unspecified Qualified Code(s): I10 - Essential (primary) hypertension (6) GERD (gastroesophageal reflux disease) SNOMED Code(s): 483967407 Code(s): K21.9 - GASTRO-ESOPHAGEAL REFLUX DISEASE WITHOUT ESOPHAGITIS Priority: Low Qualifiers: Esophagitis presence: esophagitis presence not specified Qualified Code(s): K21.9 - Gastro-esophageal reflux disease without esophagitis (7) Chronic knee pain SNOMED Code(s): 3921767892 Code(s): M25.569 - PAIN IN UNSPECIFIED KNEE; G89.29 - OTHER CHRONIC PAIN Pr iority: Low Qualifiers: Laterality: unspecified laterality Qualified Code(s): M25.569 - Pain in unspecified knee; G89.29 - Other chronic pain (8) Chronic ankle pain SNOMED Code(s): 16611561355796 Code(s): M25.579 - PAIN IN UNSPECIFIED ANKLE AND JOINTS OF UNSPECIFIED FOOT; G89.29 - OTHER CHRONIC PAIN Priority: Low Qualifiers: Laterality: unspecified laterality Qualified Code(s): M25.579 - Pain in unspecified ankle and joints of unspecified foot; G89.29 - Other chronic pain (9) History of concussion SNOMED Code(s): 20304590057175515 Code(s): Z87.820 - PERSONAL HISTORY OF TRAUMATIC BRAIN INJURY Priority: Low (10) History of herpes zoster SNOMED Code(s): 755307599508160 Code(s): Z86.19 - PERSONAL HISTORY OF OTHER INFECTIOUS AND PARASITIC DISEASES Priority: Low (11) Osteoarthritis SNOMED Code(s): 339405362 Code(s): M19.90 - UNSPECIFIED OSTEOARTHRITIS, UNSPECIFIED SITE Priority: Medium Qualifiers: Osteoarthritis location: multiple joints Osteoarthritis type: primary Qualified Code(s): M89.49 - Other hypertrophic osteoarthropathy, multiple sites (12) Abnormal CT scan SNOMED Code(s): 097796476 Code(s): R93.89 - ABNORMAL FINDINGS ON DX IMAGING OF OTH BODY STRUCTURES Priority: Medium (13) S/P total hip arthroplasty SNOMED Code(s): 323941448913, 985224957696 Code(s): Z96.649 - PRESENCE OF UNSPECIFIED ARTIFICIAL HIP JOINT Priority: High Qualifiers: Laterality: right Qualified Code(s): Z96.641 - Presence of right artificial hip joint Problem List Initiated/Reviewed/Updated: Yes My Orders Last 24 Hours: My Active Orders 05/21/21 09:00 Cyanocobalamin (Vitamin B12) [Vitamin B12] 1,000 mcg PO DAILY Magnesium Oxide 400 mg PO DAILY Multivitamins [Tab-A-Jessica] 1 tab PO DAILY 05/23/21 05:11 CBC WITH AUTO DIFF [HEME] AM CMP [COMPREHENSIVE METABOLIC PN,CMP] [CHEM] AM MAGNESIUM [CHEM] AM 05/24/21 05:11 CBC WITH AUTO DIFF [HEME] AM CMP [COMPREHENSIVE METABOLIC PN,CMP] [CHEM] AM MAGNESIUM [CHEM] AM 05/25/21 05:11 CBC WITH AUTO DIFF [HEME] AM MAGNESIUM [CHEM] AM Plan: Closed right hip fracture S/P CECELIA Osteoporosis Osteoarthritis Chronic knee pain Chronic ankle pain * SCDs,PATRICK campuzano and ASA per primary team for DVT * Pain management per primary team * Surgery planned today with Dr. Harris * NPO at midnight; Resume regular diet thereafter * Reconciled home medications * O2 if needed to keep saturations >90% * 12-Lead EKG from in [place] reviewed * IS * Bedrest until post-surgical * CM/SW for discharge planning * PT/OT post-surgically * Surgical Risk: * NSQIP: 3.4% serious complication, 3.9% any complication, 0.2% pneumonia, 0.2% cardiac complication, 0.1% * Based on the information present at this time, including patient's chronic conditions and age, she is low to moderate risk for total hip arthroplasty. Abnormal CT scan * Sclerotic lesions noted on ischial bones bilaterally from hip CT obtained in [place] * PCP follow-up Asthma * No acute findings on chest x-ray * PRN Duonebs * Home respiratory meds HLD (hyperlipidemia) HTN (hypertension) * No acute concerns * Home meds as ordered GERD (gastroesophageal reflux disease) * No acute concerns History of concussion * No acute concerns Anxiety * No acute concerns History of herpes zoster * No acute concerns Code status: Full code PCP: Collin Dubon NP DVT prophylaxis: SCDs Disposition: Patient admitted through orthopedics to the medical surgical floor for planned surgical fixation of right hip fracture on 05/21/2021. Hospitalist medicine team consulted for risk stratification and postoperative medical management. Length of stay likely 1 to 2 days. 05/21/2021 Today Hali is doing quite well. She continues to have pain although she has been utilizing a bedside commode. Labs were obtained yesterday and were very stable. Because of this will not recheck labs today and will wait till after surgery tomorrow. Chest x-ray was reviewed and shows no acute findings. Twelve-lead EKG from [place] was reviewed. She does have some bilateral pedal edema extending up into her knees and states that this does wax and wane but is chronic for her. She is on a homeopathic water pill. We discussed possibly gi ving her a single dose of Lasix however her I's and O's have been negative and her weight was with a bed scale. There is no signs of fluid overload on the chest x-ray and we will therefore hold off and consider Lasix postsurgically. She has no acute concerns. We discussed postoperative care and plan. All questions were answered. Her daughter was on the phone and patient did give permission to talk with her listening in. Plan for surgery today. Possible discharge tomorrow pending labs and PT OT evaluation. 05/22/2021 Hali continues to do quite well. Right CECELIA was performed yesterday by Dr. Harris, orthopedic surgeon. Patient has been up ambulating to the restroom and working with PT and OT. She is off of oxygen. She has been eating without difficulty. Labs today show hemoglobin of 10.3. Platelet 167,000. Neutrophils are 69.0%. Sodium 139. Potassium 4.4. Chloride 105. Carbon dioxide 26. Anion gap 12.4. BUN is 15. Creatinine 1.1. GFR is 48. Glucose 110. Calcium 8.4. Magnesium 1.9. Total bilirubin 1.0. AST is 27, ALT 21, alkaline phosphatase 35. Protein is 5.7. Albumin 2.9. We did discuss her labs and she will make sure to drink plenty of water. She reports pain is been controlled. She has urinated. She has been utilizing her incentive spirometry and was instructed to continue utilizing that. Discussed DVT prophylaxis with primary team and they are recommending aspirin 325 mg twice daily. This seems reasonable. We will discontinue her daily 81 mg aspirin for now and she should return to that after completing her therapy for DVT prophylaxis. Otherwise all other home medications were continued. She will be cleared for discharge pending PT/OT and primary team agreement. Recommend primary care provider follow-up with sclerotic lesions noted on ischial bones bilaterally on CT scan. Consider repeat scan in the future given patient's cancer history. Thank you for allowing us to participate in the care of this patient!! <Fan Fenton Jr - Last Filed: 05/23/21 05:51> - Patient Data Vitals - Most Recent: Last Vital Signs Temp 99.0 F 05/22/21 07:35 Pulse 65 05/22/21 07:35 Resp 14 05/22/21 07:35 BP 107/79 05/22/21 10:15 Pulse Ox 90 L 05/22/21 07:35 I&O - Last 24 Hours: Intake & Output 05/22/21 05/22/21 05/23/21 14:59 22:59 06:59 Intake Total 120 400 Output Total 750 Balance 120 -350 Lab Results Last 24 Hours: Laboratory Results - last 24 hr 05/22/21 05/22/21 Range/Units 05:15 05:15 WBC 5.85 (3.98-10.04) K/mm3 RBC 3.61 L (3.98-5.22) M/mm3 Hgb 10.3 L D (11.2-15.7) gm/dl Hct 32.6 L (34.1-44.9) % MCV 90.3 (79.4-94.8) fl MCH 28.5 (25.6-32.2) pg MCHC 31.6 L (32.2-35.5) g/dl RDW Std Deviation 44.3 (36.4-46.3) fL Plt Count 167 L (182-369) K/mm3 MPV 10.9 (9.4-12.3) fl Neut % (Auto) 69.0 (34.0-71.1) % Lymph % (Auto) 19.1 L (19.3-51.7) % [place] % (Auto) 6.7 (4.7-12.5) % Eos % (Auto) 5.0 (0.7-5.8) Baso % (Auto) 0.2 (0.1-1.2) % Neut # (Auto) 4.04 (1.56-6.13) K/mm3 Lymph # (Auto) 1.12 L (1.18-3.74) K/mm3 [place] # (Auto) 0.39 H (0.24-0.36) K/mm3 Eos # (Auto) 0.29 (0.04-0.36) K/mm3 Baso # (Auto) 0.01 (0.01-0.08) K/mm3 Sodium 139 (136-145) mEq/L Potassium 4.4 (3.5-5.1) mEq/L Chloride 105 (98-107) mEq/L Carbon Dioxide 26 (21-32) mEq/L Anion Gap 12.4 (5-15) BUN 15 (7-18) mg/dL Creatinine 1.1 H (0.55-1.02) mg/dL Est Cr Clr Drug Dosing 39.46 mL/min Estimated GFR (MDRD) 48 (>60) mL/min BUN/Creatinine Ratio 13.6 L (14-18) Glucose 110 H (70-99) mg/dL Calcium 8.4 L (8.5-10.1) mg/dL Magnesium 1.9 (1.8-2.4) mg/dL Total Bilirubin 1.0 (0.2-1.0) mg/dL AST 27 (15-37) U/L ALT 21 (14-59) U/L Alkaline Phosphatase 35 L (46-116) U/L Total Protein 5.7 L (6.4-8.2) g/dl Albumin 2.9 L (3.4-5.0) g/dl Globulin 2.8 gm/dL Albumin/Globulin Ratio 1.0 (1-2) Med Orders - Current: Current Medications Discontinued Medications Acetaminophen (Acetaminophen 325 Mg Tab) 650 mg PO Q4H PRN PRN Reason: Pain/Fever Last Admin: 05/22/21 14:18 Dose: 650 mg Documented by: Albuterol (Albuterol 0.083% 2.5 Mg/3 Ml Neb Soln) 2.5 mg NEB ONETIME ONE Stop: 05/21/21 10:31 Last Admin: 05/21/21 15:20 Dose: Not Given Documented by: Albuterol (Albuterol 6.7 Gm Inhaler) 0 gm INH Q4H PRN PRN Reason: Shortness of Breath Albuterol/Ipratropium (Albuterol/Ipratropium 3.0-0.5 Mg/3 Ml Neb Soln) 3 ml NEB QIDRT PRN PRN Reason: Shortness Of Breath/wheezing Aspirin (Aspirin 325 Mg Tab.Ec) 325 mg PO BID [facility] Last Admin: 05/22/21 10:17 Dose: 325 mg Documented by: Bisacodyl (Bisacodyl 5 Mg Tab) 5 mg PO DAILY PRN PRN Reason: Constipation Bupivacaine HCl (Bupivacaine 0.25% 10 Ml Sdv) Confirm Administered Dose 30 ml .ROUTE .STK-MED ONE Stop: 05/21/21 13:14 Last Admin: 05/21/21 13:15 Dose: 20 ml Documented by: Cefazolin Sodium (Cefazolin 1 Gm Vial) Confirm Administered Dose 2 gm .ROUTE .STK-MED ONE Stop: 05/21/21 12:11 Morphine Sulfate 8 mg/Epinephrine HCl 0.3 mg/Cefuroxime Sodium 750 mg/Ketorolac Tromethamine 30 mg/Sodium Chloride 7.9 ml 0 mg .XX ASDIRECTED PRN PRN Reason: Pain Stop: 05/21/21 18:00 Last Admin: 05/21/21 13:05 Dose: 788.3 mg Documented by: Cyanocobalamin (Cyanocobalamin (Vitamin B12) 1,000 Mcg Tab) 1,000 mcg PO DAILY [facility] Last Admin: 05/22/21 10:15 Dose: 1,000 mcg Documented by: Cyclobenzaprine HCl (Cyclobenzaprine 10 Mg Tab) 10 mg PO TID PRN PRN Reason: Spasms Docusate Sodium (Docusate Sodium 100 Mg Cap) 100 mg PO Q12H PRN PRN Reason: Constipation Docusate Sodium (Docusate Sodium 100 Mg Cap) 100 mg PO BID [facility] Last Admin: 05/21/21 20:30 Dose: 100 mg Documented by: Ephedrine Sulfate (Ephedrine 50 Mg/Ml Sdv) Confirm Administered Dose 50 mg .ROUTE .STK-MED ONE Stop: 05/21/21 12:54 Famotidine (Famotidine 20 Mg Tab) 20 mg PO Q12H [facility] Last Admin: 05/22/21 10:16 Dose: 20 mg Documented by: Fentanyl (Fentanyl 250 Mcg/5 Ml Sdv) Confirm Administered Dose 250 mcg .ROUTE .STK-MED ONE Stop: 05/21/21 11:43 Fentanyl (Fentanyl 250 Mcg/5 Ml Sdv) Confirm Administered Dose 250 mcg .ROUTE .STK-MED ONE Stop: 05/21/21 12:39 Fentanyl (Fentanyl 100 Mcg/2 Ml Sdv) 50 mcg IVPUSH Q5M PRN PRN Reason: Pain Lidocaine HCl (Xylocaine-Mpf 1%) Confirm Administered Dose 4 mls @ as directed .ROUTE .STK-MED ONE Stop: 05/21/21 11:43 Cefazolin Sodium/Dextrose 2 gm (/ Premix) 50 mls @ 100 mls/hr IV Q8H [facility] Stop: 05/22/21 12:29 Last Admin: 05/22/21 12:07 Dose: 100 mls/hr Documented by: Lactated Ringer's (Ringers, Lactated) Confirm Administered Dose 1,000 mls @ as directed .ROUTE .STK-MED ONE Stop: 05/21/21 12:50 Ketorolac Tromethamine (Ketorolac 15 Mg/Ml Sdv) 15 mg IVPUSH Q6H PRN PRN Reason: Pain Last Admin: 05/21/21 16:36 Dose: 15 mg Documented by: Ketorolac Tromethamine (Ketorolac 30 Mg/Ml Sdv) Confirm Administered Dose 30 mg .ROUTE .STK-MED ONE Stop: 05/21/21 13:38 Magnesium Hydroxide (Magnesium Hydroxide 400 Mg/5 Ml Susp 30 Ml Cup) 30 ml PO BID PRN PRN Reason: Constipation Magnesium Oxide (Magnesium Oxide 400 Mg Tab) 400 mg PO DAILY [facility] Last Admin: 05/22/21 10:17 Dose: 400 mg Documented by: Metoprolol Succinate (Metoprolol Succinate 50 Mg Tab.Er) 50 mg PO BEDTIME [facility] Metoprolol Succinate (Metoprolol Succinate 50 Mg Tab.Er) 50 mg PO ONETIME ONE Stop: 05/21/21 09:01 Last Admin: 05/21/21 10:21 Dose: 50 mg Documented by: Montelukast Sodium (Montelukast 10 Mg Tab) 10 mg PO BEDTIME [facility] Last Admin: 05/21/21 20:30 Dose: 10 mg Documented by: Morphine Sulfate (Morphine 2 Mg/Ml Syringe) 2 mg IVPUSH Q2H PRN PRN Reason: Breakthrough Pain Multivitamins/Minerals/Vitamin C (Multivitamin Tab) 1 tab PO DAILY [facility] Last Admin: 05/22/21 10:15 Dose: 1 tab Documented by: Naloxone HCl (Naloxone 0.4 Mg/Ml Sdv) 0.1 mg IVPUSH Q5M PRN PRN Reason: Oversedation Ondansetron HCl (Ondansetron 4 Mg/2 Ml Sdv) 4 mg IVPUSH Q6H PRN PRN Reason: Nausea/Vomiting Ondansetron HCl (Ondansetron 4 Mg/2 Ml Sdv) Confirm Administered Dose 4 mg .ROUTE .STK-MED ONE Stop: 05/21/21 11:42 Oxycodone HCl (Oxycodone 5 Mg Tab) 5 - 10 mg PO Q6H PRN PRN Reason: Pain Potassium Chloride (Potassium Chloride 20 Meq Tab.Er) 20 meq PO BID [facility] Last Admin: 05/22/21 10:17 Dose: 20 meq Documented by: Propofol (Propofol 200 Mg/20 Ml Sdv) Confirm Administered Dose 200 mg .ROUTE .STK-MED ONE Stop: 05/21/21 11:42 Rocuronium [place] (Rocuronium 50 Mg/5 Ml Vial) Confirm Administered Dose 50 mg .ROUTE .STK-MED ONE Stop: 05/21/21 11:42 Senna (Sennosides 8.6 Mg Tab) 8.6 mg PO BID PRN PRN Reason: Constipation Sodium Chloride (Sodium Chloride 0.9% 10 Ml Syringe) 10 ml FLUSH ASDIRECTED PRN PRN Reason: Keep Vein Open Tramadol HCl (Tramadol 50 Mg Tab) 50 - 100 mg PO Q6H PRN PRN Reason: Pain Last Admin: 05/22/21 10:18 Dose: 50 mg Documented by: Tranexamic Acid (Tranexamic Acid 1,000 Mg/10 Ml Amp) Confirm Administered Dose 1,000 mg .ROUTE .STK-MED ONE Stop: 05/21/21 09:30 Last Admin: 05/21/21 12:58 Dose: 1,000 mg Documented by: Vancomycin HCl (Vancomycin 1 Gm Sdv) Confirm Administered Dose 1 gm .ROUTE .STK- MED ONE Stop: 05/21/21 09:30 Last Admin: 05/21/21 12:58 Dose: 1 gm Documented by: Consult PN Assessment/Plan Procedures: Procedures AIRWAY INHALATION TREATMENT (09/15/16) ASSAY OF CREATININE (02/23/18) C-REACTIVE PROTEIN (10/08/16) CHEST X-RAY 2VW FRONTAL&LATL (09/15/16) COMPLETE CBC AUTOMATED (09/15/16) COMPLETE CBC W/AUTO DIFF WBC (09/15/16) COMPREHEN METABOLIC PANEL (09/15/16) CT ABD & PELV W/CONTRAST (02/23/18) CT HEAD/BRAIN W/O DYE (11/22/17) ELECTROCARDIOGRAM TRACING (09/15/16) ELECTROLYTE PANEL (09/15/16) EMERGENCY DEPT VISIT (11/22/17) EMERGENCY DEPT VISIT (09/15/16) EVALUATE PT USE OF INHALER (09/15/16) HYDRATE IV INFUSION ADD-ON (09/15/16) LAPAROSCOPY APPENDECTOMY (09/15/16) MEASURE BLOOD OXYGEN LEVEL (09/15/16) MEASURE BLOOD OXYGEN LEVEL (09/15/16) MRI JNT OF LWR EXTRE W/O DYE (04/09/21) POLYSOM 6/> YRS 4/> MOISES (02/15/19) PT EVALUATION (09/15/16) ROUTINE VENIPUNCTURE (02/23/18) THER/PROPH/DIAG IV INF INIT (09/15/16) TISSUE EXAM BY PATHOLOGIST (09/15/16) TX/PROPH/DG ADDL SEQ IV INF (09/15/16) URINALYSIS AUTO W/SCOPE (11/22/17) URINE BACTERIA CULTURE (03/15/14) X-RAY EXAM KNEE 4 OR MORE (11/22/17) X-RAY EXAM OF ABDOMEN (09/15/16) Plan: Case discussed in full. Agree with evaluation, assessment and plan.
[2021-05-22 07:59] VITALS: PULSE 65
[2021-05-22] MEDS ORDERED: Aspirin 325 MG Tab.EC PO SCH (09:00)
[2021-05-22] MEDS: Cyanocobalamin (Vitamin B12) 1,000 MCG Tab PO SCH (10:15)
[2021-05-22] MEDS: Multivitamin Tab PO SCH (10:15)
[2021-05-22] MEDS: Famotidine 20 MG Tab PO SCH (10:16)
[2021-05-22] MEDS: Potassium Chloride 20 MEQ Tab.ER PO SCH (10:17)
[2021-05-22] MEDS: Magnesium Oxide 400 MG Tab PO SCH (10:17)
--- NOTE | 2021-05-22 11:20 | PCM48HPAN ---
Post Anesthesia Note - EVALUATION WITHIN 48HRS OF ANESTHETIC Vital Signs in Normal Range: Yes Patient Participated in Evaluation: Yes Respiratory Function Stable: Yes Airway Patent: Yes Cardiovascular Function Stable: Yes Hydration Status Stable: Yes Pain Control Satisfactory: Yes Nausea and Vomiting Control Satisfactory: Yes Mental Status Recovered: Yes Vital Signs: Last Vital Signs Temp 99.0 F 05/22/21 07:35 Pulse 65 05/22/21 07:35 Resp 14 05/22/21 07:35 BP 90/71 05/22/21 07:35 Pulse Ox 90 L 05/22/21 07:35 Patient resting in bed on arrival. Patient stated that general anesthetic worked great and that her experience went well. Patient did not verbalize any questions or concerns at this time. Misty Bernstein, [employer]
[2021-05-22 12:36] VITALS: BP 107/79
--- NOTE | 2021-05-22 13:51 | PCM.SURGPN ---
- General Info Date of Service: 05/22/21 POD#: 1 Functional Status: Reports: Pain Controlled, Tolerating Diet, Ambulating, Urinating, Incentive Spirometry, Other (The pt states overall she is doing well.) - Patient Data Vitals - Most Recent: Last Vital Signs Temp 99.0 F 05/22/21 07:35 Pulse 65 05/22/21 07:35 Resp 14 05/22/21 07:35 BP 107/79 05/22/21 10:15 Pulse Ox 90 L 05/22/21 07:35 Weight - Most Recent: 202 lb 8 oz I&O - Last 24 Hours: Intake & Output 05/21/21 05/22/21 05/22/21 22:59 06:59 14:59 Intake Total 370 98 Output Total 200 1100 Balance 170 -1002 Lab Results Last 24 Hrs: Laboratory Results - last 24 hr 05/22/21 05/22/21 Range/Units 05:15 05:15 WBC 5.85 (3.98-10.04) K/mm3 RBC 3.61 L (3.98-5.22) M/mm3 Hgb 10.3 L D (11.2-15.7) gm/dl Hct 32.6 L (34.1-44.9) % MCV 90.3 (79.4-94.8) fl MCH 28.5 (25.6-32.2) pg MCHC 31.6 L (32.2-35.5) g/dl RDW Std Deviation 44.3 (36.4-46.3) fL Plt Count 167 L (182-369) K/mm3 MPV 10.9 (9.4-12.3) fl Neut % (Auto) 69.0 (34.0-71.1) % Lymph % (Auto) 19.1 L (19.3-51.7) % [place] % (Auto) 6.7 (4.7-12.5) % Eos % (Auto) 5.0 (0.7-5.8) Baso % (Auto) 0.2 (0.1-1.2) % Neut # (Auto) 4.04 (1.56-6.13) K/mm3 Lymph # (Auto) 1.12 L (1.18-3.74) K/mm3 [place] # (Auto) 0.39 H (0.24-0.36) K/mm3 Eos # (Auto) 0.29 (0.04-0.36) K/mm3 Baso # (Auto) 0.01 (0.01-0.08) K/mm3 Sodium 139 (136-145) mEq/L Potassium 4.4 (3.5-5.1) mEq/L Chloride 105 (98-107) mEq/L Carbon Dioxide 26 (21-32) mEq/L Anion Gap 12.4 (5-15) BUN 15 (7-18) mg/dL Creatinine 1.1 H (0.55-1.02) mg/dL Est Cr Clr Drug Dosing 39.46 mL/min Estimated GFR (MDRD) 48 (>60) mL/min BUN/Creatinine Ratio 13.6 L (14-18) Glucose 110 H (70-99) mg/dL Calcium 8.4 L (8.5-10.1) mg/dL Magnesium 1.9 (1.8-2.4) mg/dL Total Bilirubin 1.0 (0.2-1.0) mg/dL AST 27 (15-37) U/L ALT 21 (14-59) U/L Alkaline Phosphatase 35 L (46-116) U/L Total Protein 5.7 L (6.4-8.2) g/dl Albumin 2.9 L (3.4-5.0) g/dl Globulin 2.8 gm/dL Albumin/Globulin Ratio 1.0 (1-2) Med Orders - Current: Current Medications Acetaminophen (Acetaminophen 325 Mg Tab) 650 mg PO Q4H PRN PRN Reason: Pain/Fever Last Admin: 05/22/21 01:03 Dose: 650 mg Documented by: Albuterol (Albuterol 6.7 Gm Inhaler) 0 gm INH Q4H PRN PRN Reason: Shortness of Breath Albuterol/Ipratropium (Albuterol/Ipratropium 3.0-0.5 Mg/3 Ml Neb Soln) 3 ml NEB QIDRT PRN PRN Reason: Shortness Of Breath/wheezing Aspirin (Aspirin 325 Mg Tab.Ec) 325 mg PO BID [facility] Last Admin: 05/22/21 10:17 Dose: 325 mg Documented by: Bisacodyl (Bisacodyl 5 Mg Tab) 5 mg PO DAILY PRN PRN Reason: Constipation Cyanocobalamin (Cyanocobalamin (Vitamin B12) 1,000 Mcg Tab) 1,000 mcg PO DAILY [facility] Last Admin: 05/22/21 10:15 Dose: 1,000 mcg Documented by: Cyclobenzaprine HCl (Cyclobenzaprine 10 Mg Tab) 10 mg PO TID PRN PRN Reason: Spasms Famotidine (Famotidine 20 Mg Tab) 20 mg PO Q12H [facility] Last Admin: 05/22/21 10:16 Dose: 20 mg Documented by: Fentanyl (Fentanyl 100 Mcg/2 Ml Sdv) 50 mcg IVPUSH Q5M PRN PRN Reason: Pain Ketorolac Tromethamine (Ketorolac 15 Mg/Ml Sdv) 15 mg IVPUSH Q6H PRN PRN Reason: Pain Last Admin: 05/21/21 16:36 Dose: 15 mg Documented by: Magnesium Oxide (Magnesium Oxide 400 Mg Tab) 400 mg PO DAILY [facility] Last Admin: 05/22/21 10:17 Dose: 400 mg Documented by: Metoprolol Succinate (Metoprolol Succinate 50 Mg Tab.Er) 50 mg PO BEDTIME [facility] Montelukast Sodium (Montelukast 10 Mg Tab) 10 mg PO BEDTIME [facility] Last Admin: 05/21/21 20:30 Dose: 10 mg Documented by: Morphine Sulfate (Morphine 2 Mg/Ml Syringe) 2 mg IVPUSH Q2H PRN PRN Reason: Breakthrough Pain Multivitamins/Minerals/Vitamin C (Multivitamin Tab) 1 tab PO DAILY [facility] Last Admin: 05/22/21 10:15 Dose: 1 tab Documented by: Naloxone HCl (Naloxone 0.4 Mg/Ml Sdv) 0.1 mg IVPUSH Q5M PRN PRN Reason: Oversedation Ondansetron HCl (Ondansetron 4 Mg/2 Ml Sdv) 4 mg IVPUSH Q6H PRN PRN Reason: Nausea/Vomiting Potassium Chloride (Potassium Chloride 20 Meq Tab.Er) 20 meq PO BID [facility] Last Admin: 05/22/21 10:17 Dose: 20 meq Documented by: Senna (Sennosides 8.6 Mg Tab) 8.6 mg PO BID PRN PRN Reason: Constipation Sodium Chloride (Sodium Chloride 0.9% 10 Ml Syringe) 10 ml FLUSH ASDIRECTED PRN PRN Reason: Keep Vein Open Tramadol HCl (Tramadol 50 Mg Tab) 50 - 100 mg PO Q6H PRN PRN Reason: Pain Last Admin: 05/22/21 10:18 Dose: 50 mg Documented by: Discontinued Medications Albuterol (Albuterol 0.083% 2.5 Mg/3 Ml Neb Soln) 2.5 mg NEB ONETIME ONE Stop: 05/21/21 10:31 Last Admin: 05/21/21 15:20 Dose: Not Given Documented by: Bupivacaine HCl (Bupivacaine 0.25% 10 Ml Sdv) Confirm Administered Dose 30 ml .ROUTE .STK-MED ONE Stop: 05/21/21 13:14 Last Admin: 05/21/21 13:15 Dose: 20 ml Documented by: Cefazolin Sodium (Cefazolin 1 Gm Vial) Confirm Administered Dose 2 gm .ROUTE .STK-MED ONE Stop: 05/21/21 12:11 Morphine Sulfate 8 mg/Epinephrine HCl 0.3 mg/Cefuroxime Sodium 750 mg/Ketorolac Tromethamine 30 mg/Sodium Chloride 7.9 ml 0 mg .XX ASDIRECTED PRN PRN Reason: Pain Stop: 05/21/21 18:00 Last Admin: 05/21/21 13:05 Dose: 788.3 mg Documented by: Docusate Sodium (Docusate Sodium 100 Mg Cap) 100 mg PO Q12H PRN PRN Reason: Constipation Docusate Sodium (Docusate Sodium 100 Mg Cap) 100 mg PO BID [facility] Last Admin: 05/21/21 20:30 Dose: 100 mg Documented by: Ephedrine Sulfate (Ephedrine 50 Mg/Ml Sdv) Confirm Administered Dose 50 mg .ROUTE .STK-MED ONE Stop: 05/21/21 12:54 Fentanyl (Fentanyl 250 Mcg/5 Ml Sdv) Confirm Administered Dose 250 mcg .ROUTE .STK-MED ONE Stop: 05/21/21 11:43 Fentanyl (Fentanyl 250 Mcg/5 Ml Sdv) Confirm Administered Dose 250 mcg .ROUTE .STK-MED ONE Stop: 05/21/21 12:39 Lidocaine HCl (Xylocaine-Mpf 1%) Confirm Administered Dose 4 mls @ as directed .ROUTE .STK-MED ONE Stop: 05/21/21 11:43 Cefazolin Sodium/Dextrose 2 gm (/ Premix) 50 mls @ 100 mls/hr IV Q8H [facility] Stop: 05/22/21 12:29 Last Admin: 05/22/21 12:07 Dose: 100 mls/hr Documented by: Lactated Ringer's (Ringers, Lactated) Confirm Administered Dose 1,000 mls @ as directed .ROUTE .STK-MED ONE Stop: 05/21/21 12:50 Ketorolac Tromethamine (Ketorolac 30 Mg/Ml Sdv) Confirm Administered Dose 30 mg .ROUTE .STK-MED ONE Stop: 05/21/21 13:38 Magnesium Hydroxide (Magnesium Hydroxide 400 Mg/5 Ml Susp 30 Ml Cup) 30 ml PO BID PRN PRN Reason: Constipation Metoprolol Succinate (Metoprolol Succinate 50 Mg Tab.Er) 50 mg PO ONETIME ONE Stop: 05/21/21 09:01 Last Admin: 05/21/21 10:21 Dose: 50 mg Documented by: Ondansetron HCl (Ondansetron 4 Mg/2 Ml Sdv) Confirm Administered Dose 4 mg .ROUTE .STK-MED ONE Stop: 05/21/21 11:42 Oxycodone HCl (Oxycodone 5 Mg Tab) 5 - 10 mg PO Q6H PRN PRN Reason: Pain Propofol (Propofol 200 Mg/20 Ml Sdv) Confirm Administered Dose 200 mg .ROUTE .STK-MED ONE Stop: 05/21/21 11:42 Rocuronium [place] (Rocuronium 50 Mg/5 Ml Vial) Confirm Administered Dose 50 mg .ROUTE .STK-MED ONE Stop: 05/21/21 11:42 Tranexamic Acid (Tranexamic Acid 1,000 Mg/10 Ml Amp) Confirm Administered Dose 1,000 mg .ROUTE .STK-MED ONE Stop: 05/21/21 09:30 Last Admin: 05/21/21 12:58 Dose: 1,000 mg Documented by: Vancomycin HCl (Vancomycin 1 Gm Sdv) Confirm Administered Dose 1 gm .ROUTE .STK- MED ONE Stop: 05/21/21 09:30 Last Admin: 05/21/21 12:58 Dose: 1 gm Documented by: - Exam Wound/Incisions: Dressing Dry and Intact General: Alert, Cooperative, No Acute Distress Lungs: Normal Respiratory Effort Extremities: Other (NVS intact for RLE. Charo's negative. Right thigh soft, nontender.) Sepsis Event Note - Evaluation Sepsis Screening Result: No Definite Risk - Focused Exam Vital Signs: Vital Signs Temp Pulse Resp BP Pulse Ox 05/22/21 10:15 107/79 05/22/21 07:35 99.0 F 65 14 90/71 90 L 05/22/21 05:07 109/86 05/22/21 04:25 98.8 F 71 18 95/82 96 - Problem List Review Problem List Initiated/Reviewed/Updated: Yes - My Orders Last 24 Hours: Active Orders 24 hr Category Date Time Status Enema [RC] ASDIRECTED Care 05/22/21 12:51 Active Notify Provider [RC] ASDIRECTED Care 05/21/21 13:46 Active Pulse Oximetry [RC] ASDIRECTED Care 05/21/21 13:46 Active Ready for Discharge [RC] PER UNIT ROUTINE Care 05/22/21 10:47 Active Regular Diet [DIET] Diet 05/21/21 Dinner Active CBC WITH AUTO DIFF [HEME] AM Lab 05/23/21 05:11 Ordered CBC WITH AUTO DIFF [HEME] AM Lab 05/24/21 05:11 Ordered CBC WITH AUTO DIFF [HEME] AM Lab 05/25/21 05:11 Ordered CMP [COMPREHENSIVE METABOLIC PN,CMP] [CHEM] AM Lab 05/23/21 05:11 Ordered CMP [COMPREHENSIVE METABOLIC PN,CMP] [CHEM] AM Lab 05/24/21 05:11 Ordered MAGNESIUM [CHEM] AM Lab 05/23/21 05:11 Ordered MAGNESIUM [CHEM] AM Lab 05/24/21 05:11 Ordered MAGNESIUM [CHEM] AM Lab 05/25/21 05:11 Ordered Aspirin [Ecotrin] Med 05/22/21 09:00 Active 325 mg PO BID Famotidine [Pepcid] Med 05/21/21 21:00 Active 20 mg PO Q12H Ketorolac [Toradol] Med 05/21/21 13:00 Active 15 mg IVPUSH Q6H PRN Morphine Med 05/21/21 13:00 Active 2 mg IVPUSH Q2H PRN Sennosides [Senna] Med 05/21/21 13:00 Active 8.6 mg PO BID PRN fentaNYL [Sublimaze] Med 05/21/21 13:46 Active 50 mcg IVPUSH Q5M PRN Medication Orders Acetaminophen (Acetaminophen 325 Mg Tab) 650 mg PO Q4H PRN PRN Reason: Pain/Fever Last Admin: 05/22/21 01:03 Dose: 650 mg Documented by: Admin: 05/21/21 18:44 Dose: 650 mg Documented by: Admin: 05/21/21 10:21 Dose: 650 mg Documented by: Admin: 05/20/21 22:18 Dose: 650 mg Documented by: EAMON Albuterol (Albuterol 6.7 Gm Inhaler) 0 gm INH Q4H PRN PRN Reason: Shortness of Breath Albuterol/Ipratropium (Albuterol/Ipratropium 3.0-0.5 Mg/3 Ml Neb Soln) 3 ml NEB QIDRT PRN PRN Reason: Shortness Of Breath/wheezing Aspirin (Aspirin 325 Mg Tab.Ec) 325 mg PO BID [facility] Last Admin: 05/22/21 10:17 Dose: 325 mg Documented by: ISA Bisacodyl (Bisacodyl 5 Mg Tab) 5 mg PO DAILY PRN PRN Reason: Constipation Cyanocobalamin (Cyanocobalamin (Vitamin B12) 1,000 Mcg Tab) 1,000 mcg PO DAILY [facility] Last Admin: 05/22/21 10:15 Dose: 1,000 mcg Documented by: Admin: 05/21/21 10:53 Dose: Not Given Documented by: MARISA Cyclobenzaprine HCl (Cyclobenzaprine 10 Mg Tab) 10 mg PO TID PRN PRN Reason: Spasms Famotidine (Famotidine 20 Mg Tab) 20 mg PO Q12H [facility] Last Admin: 05/22/21 10:16 Dose: 20 mg Documented by: Admin: 05/21/21 20:29 Dose: 20 mg Documented by: EAMON Fentanyl (Fentanyl 100 Mcg/2 Ml Sdv) 50 mcg IVPUSH Q5M PRN PRN Reason: Pain Ketorolac Tromethamine (Ketorolac 15 Mg/Ml Sdv) 15 mg IVPUSH Q6H PRN PRN Reason: Pain Last Admin: 05/21/21 16:36 Dose: 15 mg Documented by: MARISA Magnesium Oxide (Magnesium Oxide 400 Mg Tab) 400 mg PO DAILY [facility] Last Admin: 05/22/21 10:17 Dose: 400 mg Documented by: Admin: 05/21/21 10:53 Dose: Not Given Documented by: MARISA Metoprolol Succinate (Metoprolol Succinate 50 Mg Tab.Er) 50 mg PO BEDTIME [facility] Montelukast Sodium (Montelukast 10 Mg Tab) 10 mg PO BEDTIME [facility] Last Admin: 05/21/21 20:30 Dose: 10 mg Documented by: Admin: 05/20/21 20:16 Dose: 10 mg Documented by: EAMON Morphine Sulfate (Morphine 2 Mg/Ml Syringe) 2 mg IVPUSH Q2H PRN PRN Reason: Breakthrough Pain Multivitamins/Minerals/Vitamin C (Multivitamin Tab) 1 tab PO DAILY [facility] Last Admin: 05/22/21 10:15 Dose: 1 tab Documented by: Admin: 05/21/21 10:53 Dose: Not Given Documented by: MARISA Naloxone HCl (Naloxone 0.4 Mg/Ml Sdv) 0.1 mg IVPUSH Q5M PRN PRN Reason: Oversedation Ondansetron HCl (Ondansetron 4 Mg/2 Ml Sdv) 4 mg IVPUSH Q6H PRN PRN Reason: Nausea/Vomiting Potassium Chloride (Potassium Chloride 20 Meq Tab.Er) 20 meq PO BID [facility] Last Admin: 05/22/21 10:17 Dose: 20 meq Documented by: Admin: 05/21/21 20:30 Dose: 20 meq Documented by: Admin: 05/21/21 10:54 Dose: Not Given Documented by: Admin: 05/20/21 20:16 Dose: 20 meq Documented by: EAMON Senna (Sennosides 8.6 Mg Tab) 8.6 mg PO BID PRN PRN Reason: Constipation Sodium Chloride (Sodium Chloride 0.9% 10 Ml Syringe) 10 ml FLUSH ASDIRECTED PRN PRN Reason: Keep Vein Open Tramadol HCl (Tramadol 50 Mg Tab) 50 - 100 mg PO Q6H PRN PRN Reason: Pain Last Admin: 05/22/21 10:18 Dose: 50 mg Documented by: Admin: 05/22/21 04:13 Dose: 50 mg Documented by: Admin: 05/21/21 20:29 Dose: 50 mg Documented by: Admin: 05/21/21 02:15 Dose: 50 mg Documented by: Admin: 05/20/21 18:16 Dose: 50 mg Documented by: MARY - Assessment Assessment (Free Text/Narrative):: POD#1 - right CECELIA - Plan Plan (Free Text/Narrative):: 1. Discharge to home today. 2. 325 mg ASA PO BID, frequent mobility, TEDs. 3. Ultram for pain management. 4. CECELIA precautions. 5. Hgb 10.3. The pt's case was discussed with Dr. Harris.
--- NOTE | 2021-05-22 13:55 | PCM.DCSUM1 ---
Discharge Summary - Hospital Course Brief History: Hali is a 76 yo female who was admitted to Hospital on 05-20-2021 for treatment of right femoral neck fracture. She underwent right CECELIA with Dr. Harris on 05-21-2021. The procedure was completed under general anesthesia. The pt tolerated the procedure well and was transferred to the Medical-Surgical Unit. Medical management was provided by the Hospitalist service. The pt's Hospital course was uneventful. The pt's Hgb on POD#1 was 10.3. On POD#1, 325mg ASA BID was initiated for VTE prophylaxis. SCDs and TEDs were also ordered. A Mepilex dressing was placed at the incision site at the time of surgery and remained clean and dry. The pt participated in P.T. and O.T. and progressed well. She followed the CECELIA precautions. The pt was allowed to WBAT. On POD#1, the pt was deemed appropriate to discharge to home with her family. - Discharge Data Discharge Date: 05/22/21 Discharge Disposition: Home, Self-Care 01 Condition: Good - Referral to Home Health Primary Care Physician: Donna Dubon NP - Patient Summary/Data Consults: Consultations 05/20/21 15:34 Consult to Physician [CONS] Routine 05/20/21 16:32 Consult to Case Management/Electronic Wirer [CONS] Routine 05/21/21 11:47 OT Evaluation and Treatment [CONS] Routine PT Evaluation and Treatment [CONS] Routine - Patient Instructions Diet: Usual Diet as Tolerated Activity: Apply Ice, As Tolerated, Elevate Extremity, Full Weight Bearing Activity, Other: Follow the total hip precautions. Driving: Do Not Drive Showering/Bathing: May Shower Wound/Incision Care: Keep Operative Site/Wound Site Clean and Dry, Do NOT Change Dressing Notify Provider of: Fever, Increased Pain, Swelling and Redness, Drainage, Nausea and/or Vomiting Other/Special Instructions: Please get up and moving around EVERY HOUR while awake. This helps to prevent blood clots. Please use your walker and have help with mobility as needed. Take a short walk in your home every hour while awake. Starting on 05-23-2021, please take aspirin 325 mg TWICE daily. The aspirin is being used for blood clot prevention so please do not miss a dose of the aspirin. You could use a medication like Pepcid or famotidine twice daily and a medication like omeprazole (Prilosec) or Nexium daily or twice daily to protect your stomach while you use aspirin. At home, please complete the exercises that you learned after surgery. Schedule for physical therap. Follow the total hip precautions. Use the pain medication as needed. The medication may cause drowsiness and constipation. Contact your primary care provider for instructions if you are constipated. You may use a stool softener like docusate sodium or Colace 100mg twice daily and/or a laxative like Miralax daily for constipation. Increase your water and fiber intake while you are using the pain medication. Please discontinue use of the prescription pain medication as soon as able. The goal is to use the least amount of prescription pain medication as possible and to discontinue use of the prescription pain medication as soon as possible. Please do not use other medications that may cause drowsiness (other pain medications, anxiety pills, cold medications, sleeping pills, etc) while using the prescription pain medication. Do not use alcohol while using the pain medication. You may use acetaminophen or Tylenol for pain management, however, please ensure you are not using over 4000 mg or 4 grams of acetaminophen per day. At this time, please do not use ibuprofen (Motrin, Advil) or naproxen (Aleve) for pain management as you are using the aspirin twice daily. When the aspirin course is completed in 5 weeks, you could use ibuprofen or naproxen for pain management (if this is allowed by your primary care provider). On the day following surgery, you may remove the RENETTA bandage on the surgical limb and put on the PATRICK hose. If you can tolerate use of the PATRICK hose, wear them during the day and remove them at night. Elevate the limb to decrease swelling. Elevating the limb above the level of the heart will be most effective. Elevating the foot higher than the knee will help to decrease swelling in the foot. Place ice to the area often. Place a towel between your skin and the blue pad. Please keep the dressing in place until follow-up. As long as the dressing is sealed and without a hole, the dressing is water resistant and therefore, you may have a shower. Please do not soak that dressing in a tub, pool, whirlpool. Notify the Clinic if the dressing becomes saturated. Increase your protein intake while you are healing. It is normal to have swelling and bruising at the surgical site, as well as above and below the surgical site. If you have diabetes or have been instructed by your primary care provider to monitor your blood sugars, please closely monitor your sugars. Notify your primary care provider of the values. Elevated sugars can increase the risk of infection. If you have questions or concerns, please call [phone] and leave a message for the nurse. Your call will be returned. - Discharge Plan *PRESCRIPTION DRUG MONITORING PROGRAM REVIEWED*: No *COPY OF PRESCRIPTION DRUG MONITORING REPORT IN PATIENT LUIS: No Prescriptions/Med Rec: Aspirin [Ecotrin EC] 325 mg PO BID #70 tab.ec Cyclobenzaprine [Flexeril] 5 mg PO BID PRN #10 tablet PRN Reason: Spasms traMADol [Ultram] 50 - 100 mg PO Q6H PRN #40 tablet PRN Reason: Pain Home Medications: Home Meds Albuterol Sulfate [Proventil Hfa] 2 puff INH Q4H PRN 09/15/16 [History] Ascorbic Acid [Vitamin C] 500 mg PO DAILY 09/15/16 [History] Clobetasol [Clobetasol 0.05%] 1 applic TOP BID PRN 09/15/16 [History] Cranberry 500 mg PO BID 09/15/16 [History] Cyanocobalamin (Vitamin B-12) [B-12] 500 mg PO BID 09/15/16 [History] Flaxseed Oil [Flaxseed] 1,000 mg PO DAILY 09/15/16 [History] Lysine 500 mg PO DAILY PRN 09/15/16 [History] Metoprolol Succinate 50 mg PO BEDTIME 09/15/16 [History] Montelukast [Singulair] 10 mg PO BEDTIME 09/15/16 [History] Multivitamin [Multi-Vitamin Daily] 1 tab PO DAILY 09/15/16 [History] [place]-3 Fatty Acids [Fish Oil] 1,000 mg PO 12 09/15/16 [History] Potassium 99 mg PO BID 09/15/16 [History] Simvastatin [Zocor] 20 mg PO BEDTIME 09/15/16 [History] Ubidecarenone [Coq-10] 1 tab PO 12 09/16/16 [History] Cetirizine [ZyrTEC] 10 mg PO DAILY 05/20/21 [History] Cholecalciferol (Vitamin D3) [Vitamin D3] 1 tab PO DAILY 05/20/21 [History] Magnesium 1 tab PO DAILY 05/20/21 [History] Aspirin [Ecotrin EC] 325 mg PO BID #70 tab.ec 05/22/21 [Rx] Cyclobenzaprine [Flexeril] 5 mg PO BID PRN #10 tablet 05/22/21 [Rx] traMADol [Ultram] 50 - 100 mg PO Q6H PRN #40 tablet 05/22/21 [Rx] Patient Handouts: Total Hip Replacement, [id number] Referrals: Donna Dubon NP [Primary Care Provider] - (Follow up with her as needed for medical concerns.) Georgia Hatch PA-C [Physician Hat Ironer] - 05/28/21 1:00 pm (Come 15 minutes prior to the appointment to register. ) - Discharge Summary/Plan Comment DC Time >30 min.: No Total # of Minutes for Discharge Time: 20 minutes - Patient Data Vitals - Most Recent: Last Vital Signs Temp 99.0 F 05/22/21 07:35 Pulse 65 05/22/21 07:35 Resp 14 05/22/21 07:35 BP 107/79 05/22/21 10:15 Pulse Ox 90 L 05/22/21 07:35 Weight - Most Recent: 202 lb 8 oz I&O - Last 24 hours: Intake & Output 05/21/21 05/22/21 05/22/21 22:59 06:59 14:59 Intake Total 370 98 Output Total 200 1100 Balance 170 -1002 Lab Results - Last 24 hrs: Laboratory Results - last 24 hr 05/22/21 05/22/21 Range/Units 05:15 05:15 WBC 5.85 (3.98-10.04) K/mm3 RBC 3.61 L (3.98-5.22) M/mm3 Hgb 10.3 L D (11.2-15.7) gm/dl Hct 32.6 L (34.1-44.9) % MCV 90.3 (79.4-94.8) fl MCH 28.5 (25.6-32.2) pg MCHC 31.6 L (32.2-35.5) g/dl RDW Std Deviation 44.3 (36.4-46.3) fL Plt Count 167 L (182-369) K/mm3 MPV 10.9 (9.4-12.3) fl Neut % (Auto) 69.0 (34.0-71.1) % Lymph % (Auto) 19.1 L (19.3-51.7) % [place] % (Auto) 6.7 (4.7-12.5) % Eos % (Auto) 5.0 (0.7-5.8) Baso % (Auto) 0.2 (0.1-1.2) % Neut # (Auto) 4.04 (1.56-6.13) K/mm3 Lymph # (Auto) 1.12 L (1.18-3.74) K/mm3 [place] # (Auto) 0.39 H (0.24-0.36) K/mm3 Eos # (Auto) 0.29 (0.04-0.36) K/mm3 Baso # (Auto) 0.01 (0.01-0.08) K/mm3 Sodium 139 (136-145) mEq/L Potassium 4.4 (3.5-5.1) mEq/L Chloride 105 (98-107) mEq/L Carbon Dioxide 26 (21-32) mEq/L Anion Gap 12.4 (5-15) BUN 15 (7-18) mg/dL Creatinine 1.1 H (0.55-1.02) mg/dL Est Cr Clr Drug Dosing 39.46 mL/min Estimated GFR (MDRD) 48 (>60) mL/min BUN/Creatinine Ratio 13.6 L (14-18) Glucose 110 H (70-99) mg/dL Calcium 8.4 L (8.5-10.1) mg/dL Magnesium 1.9 (1.8-2.4) mg/dL Total Bilirubin 1.0 (0.2-1.0) mg/dL AST 27 (15-37) U/L ALT 21 (14-59) U/L Alkaline Phosphatase 35 L (46-116) U/L Total Protein 5.7 L (6.4-8.2) g/dl Albumin 2.9 L (3.4-5.0) g/dl Globulin 2.8 gm/dL Albumin/Globulin Ratio 1.0 (1-2) Med Orders - Current: Current Medications Acetaminophen (Acetaminophen 325 Mg Tab) 650 mg PO Q4H PRN PRN Reason: Pain/Fever Last Admin: 05/22/21 01:03 Dose: 650 mg Documented by: Albuterol (Albuterol 6.7 Gm Inhaler) 0 gm INH Q4H PRN PRN Reason: Shortness of Breath Albuterol/Ipratropium (Albuterol/Ipratropium 3.0-0.5 Mg/3 Ml Neb Soln) 3 ml NEB QIDRT PRN PRN Reason: Shortness Of Breath/wheezing Aspirin (Aspirin 325 Mg Tab.Ec) 325 mg PO BID [facility] Last Admin: 05/22/21 10:17 Dose: 325 mg Documented by: Bisacodyl (Bisacodyl 5 Mg Tab) 5 mg PO DAILY PRN PRN Reason: Constipation Cyanocobalamin (Cyanocobalamin (Vitamin B12) 1,000 Mcg Tab) 1,000 mcg PO DAILY [facility] Last Admin: 05/22/21 10:15 Dose: 1,000 mcg Documented by: Cyclobenzaprine HCl (Cyclobenzaprine 10 Mg Tab) 10 mg PO TID PRN PRN Reason: Spasms Famotidine (Famotidine 20 Mg Tab) 20 mg PO Q12H [facility] Last Admin: 05/22/21 10:16 Dose: 20 mg Documented by: Fentanyl (Fentanyl 100 Mcg/2 Ml Sdv) 50 mcg IVPUSH Q5M PRN PRN Reason: Pain Ketorolac Tromethamine (Ketorolac 15 Mg/Ml Sdv) 15 mg IVPUSH Q6H PRN PRN Reason: Pain Last Admin: 05/21/21 16:36 Dose: 15 mg Documented by: Magnesium Oxide (Magnesium Oxide 400 Mg Tab) 400 mg PO DAILY [facility] Last Admin: 05/22/21 10:17 Dose: 400 mg Documented by: Metoprolol Succinate (Metoprolol Succinate 50 Mg Tab.Er) 50 mg PO BEDTIME [facility] Montelukast Sodium (Montelukast 10 Mg Tab) 10 mg PO BEDTIME [facility] Last Admin: 05/21/21 20:30 Dose: 10 mg Documented by: Morphine Sulfate (Morphine 2 Mg/Ml Syringe) 2 mg IVPUSH Q2H PRN PRN Reason: Breakthrough Pain Multivitamins/Minerals/Vitamin C (Multivitamin Tab) 1 tab PO DAILY [facility] Last Admin: 05/22/21 10:15 Dose: 1 tab Documented by: Naloxone HCl (Naloxone 0.4 Mg/Ml Sdv) 0.1 mg IVPUSH Q5M PRN PRN Reason: Oversedation Ondansetron HCl (Ondansetron 4 Mg/2 Ml Sdv) 4 mg IVPUSH Q6H PRN PRN Reason: Nausea/Vomiting Potassium Chloride (Potassium Chloride 20 Meq Tab.Er) 20 meq PO BID [facility] Last Admin: 05/22/21 10:17 Dose: 20 meq Documented by: Senna (Sennosides 8.6 Mg Tab) 8.6 mg PO BID PRN PRN Reason: Constipation Sodium Chloride (Sodium Chloride 0.9% 10 Ml Syringe) 10 ml FLUSH ASDIRECTED PRN PRN Reason: Keep Vein Open Tramadol HCl (Tramadol 50 Mg Tab) 50 - 100 mg PO Q6H PRN PRN Reason: Pain Last Admin: 05/22/21 10:18 Dose: 50 mg Documented by: Discontinued Medications Albuterol (Albuterol 0.083% 2.5 Mg/3 Ml Neb Soln) 2.5 mg NEB ONETIME ONE Stop: 05/21/21 10:31 Last Admin: 05/21/21 15:20 Dose: Not Given Documented by: Bupivacaine HCl (Bupivacaine 0.25% 10 Ml Sdv) Confirm Administered Dose 30 ml .ROUTE .STK-MED ONE Stop: 05/21/21 13:14 Last Admin: 05/21/21 13:15 Dose: 20 ml Documented by: Cefazolin Sodium (Cefazolin 1 Gm Vial) Confirm Administered Dose 2 gm .ROUTE .STK-MED ONE Stop: 05/21/21 12:11 Morphine Sulfate 8 mg/Epinephrine HCl 0.3 mg/Cefuroxime Sodium 750 mg/Ketorolac Tromethamine 30 mg/Sodium Chloride 7.9 ml 0 mg .XX ASDIRECTED PRN PRN Reason: Pain Stop: 05/21/21 18:00 Last Admin: 05/21/21 13:05 Dose: 788.3 mg Documented by: Docusate Sodium (Docusate Sodium 100 Mg Cap) 100 mg PO Q12H PRN PRN Reason: Constipation Docusate Sodium (Docusate Sodium 100 Mg Cap) 100 mg PO BID [facility] Last Admin: 05/21/21 20:30 Dose: 100 mg Documented by: Ephedrine Sulfate (Ephedrine 50 Mg/Ml Sdv) Confirm Administered Dose 50 mg .ROUTE .STK-MED ONE Stop: 05/21/21 12:54 Fentanyl (Fentanyl 250 Mcg/5 Ml Sdv) Confirm Administered Dose 250 mcg .ROUTE .STK-MED ONE Stop: 05/21/21 11:43 Fentanyl (Fentanyl 250 Mcg/5 Ml Sdv) Confirm Administered Dose 250 mcg .ROUTE .STK-MED ONE Stop: 05/21/21 12:39 Lidocaine HCl (Xylocaine-Mpf 1%) Confirm Administered Dose 4 mls @ as directed .ROUTE .STK-MED ONE Stop: 05/21/21 11:43 Cefazolin Sodium/Dextrose 2 gm (/ Premix) 50 mls @ 100 mls/hr IV Q8H [facility] Stop: 05/22/21 12:29 Last Admin: 05/22/21 12:07 Dose: 100 mls/hr Documented by: Lactated Ringer's (Ringers, Lactated) Confirm Administered Dose 1,000 mls @ as directed .ROUTE .STK-MED ONE Stop: 05/21/21 12:50 Ketorolac Tromethamine (Ketorolac 30 Mg/Ml Sdv) Confirm Administered Dose 30 mg .ROUTE .STK-MED ONE Stop: 05/21/21 13:38 Magnesium Hydroxide (Magnesium Hydroxide 400 Mg/5 Ml Susp 30 Ml Cup) 30 ml PO BID PRN PRN Reason: Constipation Metoprolol Succinate (Metoprolol Succinate 50 Mg Tab.Er) 50 mg PO ONETIME ONE Stop: 05/21/21 09:01 Last Admin: 05/21/21 10:21 Dose: 50 mg Documented by: Ondansetron HCl (Ondansetron 4 Mg/2 Ml Sdv) Confirm Administered Dose 4 mg .ROUTE .STK-MED ONE Stop: 05/21/21 11:42 Oxycodone HCl (Oxycodone 5 Mg Tab) 5 - 10 mg PO Q6H PRN PRN Reason: Pain Propofol (Propofol 200 Mg/20 Ml Sdv) Confirm Administered Dose 200 mg .ROUTE .STK-MED ONE Stop: 05/21/21 11:42 Rocuronium [place] (Rocuronium 50 Mg/5 Ml Vial) Confirm Administered Dose 50 mg .ROUTE .STK-MED ONE Stop: 05/21/21 11:42 Tranexamic Acid (Tranexamic Acid 1,000 Mg/10 Ml Amp) Confirm Administered Dose 1,000 mg .ROUTE .STK-MED ONE Stop: 05/21/21 09:30 Last Admin: 05/21/21 12:58 Dose: 1,000 mg Documented by: Vancomycin HCl (Vancomycin 1 Gm Sdv) Confirm Administered Dose 1 gm .ROUTE .STK- MED ONE Stop: 05/21/21 09:30 Last Admin: 05/21/21 12:58 Dose: 1 gm Documented by:
--- NOTE | 2021-06-04 16:55 | PCM.OPNOTE ---
- General Post-Op/Procedure Note Date of Surgery/Procedure: 05/21/21 Operative Procedure(s): right total hip arthroplasty Pre Op Diagnosis: right hip osteoarthosis Post-Op Diagnosis: Same Anesthesia Technique: Local, MAC, Spinal Primary Surgeon: Osmin Harris Anesthesia Provider: Drake Navarro Expediter Clerk: Georgia Hatch Expediter Clerk: Alva Loomis EBBandar in mLs: 400 Complications: None Condition: Good Free Text/Narrative:: 54 5 28+4
--- NOTE | 2021-06-04 17:19 | OR ---
DATE OF OPERATION: 05/21/2021 SURGEON: Osmin Harris MD OPERATION PERFORMED: Right total hip arthroplasty. PREOPERATIVE DIAGNOSIS: Displaced right femoral neck fracture. POSTOPERATIVE DIAGNOSIS: Displaced right femoral neck fracture. ANESTHESIA: Local MAC with spinal. ANESTHESIA PROVIDER: Drake Navarro CRNA ASSISTANTS: Georgia Hatch PA-C; and Alva Loomis LPN ESTIMATED BLOOD LOSS: 400 mL. COMPLICATIONS: None. CONDITION: Stable. IMPLANTS: 1. [place] size 54 mm solid Tritanium II acetabular cup. 2. [place] size 5 Accolade II stem. 3. [place] size 28, +4 MDM components. DESCRIPTION OF PROCEDURE: The patient was identified in the preoperative holding area. Proper site was marked and identified by the surgeon. The patient was taken back to the operative theater, where after adequate anesthesia, the patient was placed in a left lateral decubitus position. Axillary roll was placed. Pegs were then placed and well padded. The patient's gluteal fold was parallel to the floor. Right hip was then sterilely prepped and draped in the usual sterile fashion. OR time-out was performed. The patient received 2 g IV Ancef. Standard posterior incision was made centered over the greater trochanter. This was taken down to the IT band and gluteal fascia which was incised along the incisional length. A Charnley retractor was then placed. Takedown of short external rotators as well as a capsulotomy was performed from the level of the piriformis down to the lesser trochanter. At this time, the hip was able to be dislocated. The femoral head was then removed and a clean-up neck cut was completed. Attention was turned to the acetabulum. Anterior-posterior acetabular retractors were placed. Circumferential removal of the labrum was done as well as pulvinar. I then was able to ream with a 54 reamer, roughly 45 to 50 degrees of abduction and 20 to 30 degrees of anteversion, and I had good bony bleeding bed. At this time, the size 54 mm solid Tritanium II acetabular cup was impacted into place and the MDM liner was impacted into place and had adequate hold. Attention was turned to the femur. Box chisel was used out laterally. Starter awl was placed down the canal. Starting with zero broach, I was able to broach to a size 5 which was found to be rotationally and vertically stable. Trial implants with 127-degree neck were then placed. With zero, the patient's leg was noted to be a little bit short, so +4 was trialed and it was found to have adequate christian of leg lengths, was stable throughout range of motion. Bone hook was then used to dislocate the hip. The trial implants were removed. Size 5 Accolade II stem was impacted into place with a 28, +4 MDM head. The hip was then relocated. #5 Ethibond suture was used for closure of the short external rotators and capsule. 1 L pulse lavage irrigation with Ancef was irrigated through the hip along with 400 mL of IrriSept irrigation. Periarticular injection was completed. Topical tranexamic acid and vancomycin powder were applied. A #2 barbed suture was used for closure of the IT band and gluteal fascia. 2-0 Vicryl was used subcutaneously, and Prineo was used for skin closure. The patient tolerated the procedure well and sent to PACU in stable condition. MMODAL /[id number]
== END 2021-05-22 15:05 | disposition home or self-care (01) | DRG 522 ==
LOC: JD.MS 15:17
PROVIDERS: ADMIT Orthopaedic Surgery; ATTEND Orthopaedic Surgery
PROC: 0SR901Z Replacement of Right Hip Joint with Metal Synthetic Substitute, Open Approach (ICD-10-PCS; principal; 2021-05-21)
DX: S72.001A Fracture of unspecified part of neck of right femur, initial encounter for closed fracture (principal); J45.909 Unspecified asthma, uncomplicated; E78.5 Hyperlipidemia, unspecified; I10 Essential (primary) hypertension; K21.9 Gastro-esophageal reflux disease without esophagitis; Z20.822 Contact with and (suspected) exposure to COVID-19; M81.0 Age-related osteoporosis without current pathological fracture; M19.90 Unspecified osteoarthritis, unspecified site; F41.9 Anxiety disorder, unspecified; E78.00 Pure hypercholesterolemia, unspecified; G89.29 Other chronic pain; M89.49 Other hypertrophic osteoarthropathy, multiple sites; R93.89 Abnormal findings on diagnostic imaging of other specified body structures; M25.572 Pain in left ankle and joints of left foot; M25.561 Pain in right knee; Z91.011 Allergy to milk products; Z91.09 Other allergy status, other than to drugs and biological substances; Z88.1 Allergy status to other antibiotic agents; Z79.82 Long term (current) use of aspirin; Z79.899 Other long term (current) drug therapy; Z98.49 Cataract extraction status, unspecified eye; W19.XXXA Unspecified fall, initial encounter
CPT/HCPCS: 01214; 36415; 71045; 71045-26; 73501-26-RT; 73501-RT; 80053; 83735; 84443; 85025; 85610; 86850; 86900; 86901; 87641; 94761; 97110-GP; 97116-GP; 97161-GP; 99100; 99222; 99233; A9270-GY; C1776; J0171; J0690; J0697; J1885; J2270; J2405; J2704; J3010; J3370; J3490; J7120; U0002

== ENCOUNTER 2023-02-17 07:42 | Day surgery (SDC) | payer MEDICARE ==
[~2023-02-17 07:42] MED LIST: Lactated Ringers 1,000 ML IV SCH; Lidocaine 1%/Sod Bicarbonate in NS 8.4% 1 ML Syringe IDERM PRN; Morphine 8 MG, EPINEPHrine 0.3 MG, Cefuroxime 750 MG, Ketorolac 30 MG, Sodium Chloride ... PRN; Sodium Chloride 0.9% 10 ML Syringe FLUSH PRN
[2023-02-17] MEDS ORDERED: Ondansetron 4 MG/2 ML SDV IVPUSH PRN ×2 (08:07→16:19)
[2023-02-17] MEDS ORDERED: Ondansetron 4 MG/2 ML SDV ONE (08:52)
[2023-02-17] MEDS ORDERED: Lidocaine 1% 2 ML ONE (08:52)
[2023-02-17] MEDS ORDERED: Propofol 200 MG/20 ML SDV ONE (08:53)
[2023-02-17] MEDS ORDERED: fentaNYL 100 MCG/2 ML SDV ONE (08:53)
[2023-02-17] MEDS ORDERED: EPINEPHrine 1 MG/ML SDV ONE (08:58)
[2023-02-17] MEDS ORDERED: Ropivacaine 0.5% 5 MG/ML 30 ML SDV ONE (08:59)
[2023-02-17] MEDS ORDERED: ceFAZolin 2 GM Vial ONE (10:15)
[2023-02-17] MEDS ORDERED: Labetalol 100 MG/20 ML MDV ONE (10:47)
[2023-02-17] MEDS ORDERED: Ketorolac 30 MG/ML SDV ONE (11:00)
[2023-02-17] MEDS ORDERED: HYDROmorphone 0.5 MG/0.5 ML Syringe ONE (11:00)
[2023-02-17] MEDS: Vancomycin 1 GM SDV ONE ×2 (11:21→11:26)
[2023-02-17] MEDS: Tranexamic Acid 1,000 MG/10 ML Vial ONE ×2 (11:21→11:26)
[2023-02-17] MEDS: fentaNYL 100 MCG/2 ML SDV IVPUSH PRN ×4 (11:55→13:24)
[2023-02-17] MEDS: HYDROmorphone 0.5 MG/0.5 ML Syringe IVPUSH PRN ×2 (12:05→12:16)
[2023-02-17] MEDS ORDERED: traMADol 50 MG Tab PO ONE (14:01)
[2023-02-17] MEDS ORDERED: tiZANidine 4 MG Tab PO PRN (16:14)
[2023-02-17] MEDS ORDERED: Acetaminophen 325 MG Tab PO ONE (16:25)
[2023-02-17] MEDS: Sodium Chloride 0.9% 10 ML Syringe FLUSH SCH (21:09)
[2023-02-17] MEDS: traMADol 50 MG Tab PO PRN (21:30)
[2023-02-17] MEDS ORDERED: Metoprolol Succinate 50 MG Tab.ER PO SCH (22:00)
[2023-02-18 05:04] VITALS: BP 104/57; PULSE 79
[2023-02-18] MEDS: traMADol 50 MG Tab PO PRN (09:32)
== END 2023-02-18 09:45 | disposition home or self-care (01) ==
LOC: JD.SDS 07:42 → JD.MS 16:50 → JD.SDS 02-18 09:45
PROVIDERS: ATTEND Orthopaedic Surgery
DX: M17.11 Unilateral primary osteoarthritis, right knee (principal); I10 Essential (primary) hypertension; E78.2 Mixed hyperlipidemia; G47.33 Obstructive sleep apnea (adult) (pediatric); J45.909 Unspecified asthma, uncomplicated; E53.8 Deficiency of other specified B group vitamins; K21.9 Gastro-esophageal reflux disease without esophagitis; G43.909 Migraine, unspecified, not intractable, without status migrainosus; M81.0 Age-related osteoporosis without current pathological fracture; Z86.16 Personal history of COVID-19; Z90.89 Acquired absence of other organs; Z98.890 Other specified postprocedural states; Z87.59 Personal history of other complications of pregnancy, childbirth and the puerperium; Z79.899 Other long term (current) drug therapy; Z91.048 Other nonmedicinal substance allergy status; Z88.1 Allergy status to other antibiotic agents; Z91.018 Allergy to other foods; Z91.011 Allergy to milk products; Z91.09 Other allergy status, other than to drugs and biological substances; Z88.8 Allergy status to other drugs, medicaments and biological substances; Z87.81 Personal history of (healed) traumatic fracture
CPT/HCPCS: 0055T; 27447; 64447; 73560; 97110; 97116; 97161; A9270; C1713; C1776; J0171; J0690; J0697; J1170; J1885; J2270; J2405; J2704; J2795; J3010; J3370; J3490; J7120; 01402; 97530-GP; 99100

== ENCOUNTER 2023-09-07 00:22 | Emergency (ER) | payer MEDICARE ==
[2023-09-07 01:24] LABS: BASOPHILS PERCENT AUTO 0.3 % (0.0-1.0); EOSINOPHILS PERCENT AUTO 0.3 % (0.0-6.0); HEMATOCRIT 14.4 % (37.0-47.0); IMMATURE GRAN ABSOLUTE AUTO 0.03 K/mm3 (0.00-0.05); IMMATURE GRAN PERCENT AUTO 0.5 % (0.0-0.4); LYMPHOCYTES ABSOLUTE AUTO 1.1 K/mm3 (1.0-4.8); LYMPHOCYTES PERCENT AUTO 17.6 % (24.0-44.0); MEAN CORPUSCULAR HGB CONC 27.8 g/dl (32.0-36.0); MEAN CORPUSCULAR VOLUME 64.9 fl (83.0-99.0); MEAN PLATELET VOLUME 10.6 fl (9.4-12.3); MONOCYTES ABSOLUTE AUTO 0.6 K/mm3 (0.0-0.8); MONOCYTES PERCENT AUTO 9.3 % (0.0-8.0); NEUTROPHILS ABSOLUTE AUTO 4.6 K/mm3 (1.8-7.7); NRBC ABSOLUTE 0.02 (0.00-0.02); NRBC PERCENT 0.3 % (0.0-0.2); PLATELET COUNT,PLT 371 K/mm3 (150-400); RED BLOOD CELL COUNT 2.22 M/mm3 (4.10-5.30); WHITE BLOOD CELL COUNT,WBC 6.43 K/mm3 (3.9-11.3)
[2023-09-07 01:39] LABS: A/G RATIO 1.1 (1-2); ALBUMIN 3.3 g/dl (3.4-5.0); ANION GAP 16.8 (5-15); BILIRUBIN TOTAL 0.8 mg/dL (0.2-1.0); BUN/CREATININE RATIO 28.6 (14-18); CALCIUM 9.5 mg/dL (8.5-10.1); CREATININE 0.7 mg/dL (0.55-1.02); EST CRCL DRUG DOSING (CG) 53.02 mL/min; POTASSIUM,K 3.8 mEq/L (3.5-5.1); PROTEIN TOTAL,TP 6.2 g/dl (6.4-8.2); TSH 2.381 uIU/mL (0.358-3.74)
[2023-09-07 01:49] LABS: CORONAVIRUS COVID-19 NAA NEGATIVE (NEGATIVE); INFLUENZA A NAA NEGATIVE (NEGATIVE); RESPIRATORY SYNCYTIAL VIR NAA NEGATIVE (NEGATIVE)
[2023-09-07] MEDS ORDERED: Sodium Chloride 0.9% 250 ML IV SCH (03:00)
[2023-09-07] MEDS ORDERED: Sodium Chloride 0.9% 250 ML ONE (03:07)
[2023-09-07 05:23] LABS: APPEARANCE,URINE CLEAR (Clear); BILIRUBIN,URINE NEGATIVE (Negative); COLOR,URINE YELLOW (Yellow); GLUCOSE,URINE NEGATIVE (Negative); KETONES,URINE NEGATIVE (Negative); LEUKOCYTE ESTERASE,URINE 1+ (Negative); NITRITE,URINE NEGATIVE (Negative); OCCULT BLOOD,URINE NEGATIVE (Negative); PROTEIN,URINE TRACE (Negative); UROBILINOGEN,URINE 0.2 (0.2-1.0)
[2023-09-07 05:33] LABS: BASOPHILS PERCENT AUTO 0.3 % (0.0-1.0); EOSINOPHILS PERCENT AUTO 0.4 % (0.0-6.0); IMMATURE GRAN ABSOLUTE AUTO 0.01 K/mm3 (0.00-0.05); IMMATURE GRAN PERCENT AUTO 0.1 % (0.0-0.4); LYMPHOCYTES ABSOLUTE AUTO 1.9 K/mm3 (1.0-4.8); LYMPHOCYTES PERCENT AUTO 28.8 % (24.0-44.0); MEAN CORPUSCULAR HEMOGLOBIN 22.5 pg (28.0-32.0); MEAN CORPUSCULAR VOLUME 72.7 fl (83.0-99.0); MEAN PLATELET VOLUME 10.3 fl (9.4-12.3); MONOCYTES ABSOLUTE AUTO 0.7 K/mm3 (0.0-0.8); MONOCYTES PERCENT AUTO 10.7 % (0.0-8.0); NEUTROPHILS PERCENT AUTO 59.7 % (41.0-71.0); PLATELET COUNT,PLT 303 K/mm3 (150-400); RED BLOOD CELL COUNT 2.89 M/mm3 (4.10-5.30); WHITE BLOOD CELL COUNT,WBC 6.74 K/mm3 (3.9-11.3)
[2023-09-07 05:38] LABS: BACTERIA,URINE FEW /hpf (FEW); EPITHELIAL CELLS,URINE 0-5 /hpf (0-5); HYALINE CASTS,URINE 0-5 /lpf (0-5); MUCUS,URINE FEW /hpf (FEW); RBC,URINE 0-5 /hpf (0-5); WBC,URINE 0-5 /hpf (0-5)
[2023-09-07 05:46] LABS: HEMOGLOBIN 6.5 gm/dl (12.0-16.0)
[2023-09-07 06:25] LABS: A/G RATIO 1.2 (1-2); ALBUMIN 3.1 g/dl (3.4-5.0); ANION GAP 13.1 (5-15); BILIRUBIN TOTAL 1.5 mg/dL (0.2-1.0); BUN/CREATININE RATIO 28.6 (14-18); CALCIUM 9.2 mg/dL (8.5-10.1); CREATININE 0.7 mg/dL (0.55-1.02); EST CRCL DRUG DOSING (CG) 53.02 mL/min; POTASSIUM,K 4.1 mEq/L (3.5-5.1); PROTEIN TOTAL,TP 5.8 g/dl (6.4-8.2)
[2023-09-07] MEDS ORDERED: Diltiazem 180 MG Cap.CD PO ONE (07:15)
[2023-09-07 09:42] LABS: BASOPHILS PERCENT AUTO 0.4 % (0.0-1.0); EOSINOPHILS ABSOLUTE AUTO 0.1 K/mm3 (0.0-0.4); EOSINOPHILS PERCENT AUTO 1.1 % (0.0-6.0); IMMATURE GRAN ABSOLUTE AUTO 0.02 K/mm3 (0.00-0.05); IMMATURE GRAN PERCENT AUTO 0.4 % (0.0-0.4); LYMPHOCYTES ABSOLUTE AUTO 1.4 K/mm3 (1.0-4.8); LYMPHOCYTES PERCENT AUTO 26.3 % (24.0-44.0); MEAN CORPUSCULAR HEMOGLOBIN 22.5 pg (28.0-32.0); MEAN CORPUSCULAR HGB CONC 30.9 g/dl (32.0-36.0); MEAN CORPUSCULAR VOLUME 72.8 fl (83.0-99.0); MONOCYTES ABSOLUTE AUTO 0.7 K/mm3 (0.0-0.8); MONOCYTES PERCENT AUTO 13.2 % (0.0-8.0); NEUTROPHILS ABSOLUTE AUTO 3.2 K/mm3 (1.8-7.7); NEUTROPHILS PERCENT AUTO 58.6 % (41.0-71.0); PLATELET COUNT,PLT 252 K/mm3 (150-400); RED BLOOD CELL COUNT 3.16 M/mm3 (4.10-5.30); WHITE BLOOD CELL COUNT,WBC 5.47 K/mm3 (3.9-11.3)
[2023-09-07 09:47] LABS: HEMOGLOBIN 7.1 gm/dl (12.0-16.0)
[2023-09-07 10:05] LABS: ANION GAP 13.1 (5-15); BUN/CREATININE RATIO 22.9 (14-18); CALCIUM 9.3 mg/dL (8.5-10.1); CREATININE 0.7 mg/dL (0.55-1.02); EST CRCL DRUG DOSING (CG) 53.02 mL/min; POTASSIUM,K 4.1 mEq/L (3.5-5.1)
[2023-09-07 10:18] LABS: SLIDE REVIEW ABNORMAL SMEAR
[2023-09-07 11:46] VITALS: BP 137/90; PULSE 124
== END 2023-09-07 10:54 | disposition home or self-care (01) ==
LOC: JD.ED 00:22
DX: D64.9 Anemia, unspecified (principal); R19.5 Other fecal abnormalities; E78.00 Pure hypercholesterolemia, unspecified; I10 Essential (primary) hypertension; J45.909 Unspecified asthma, uncomplicated; Z88.1 Allergy status to other antibiotic agents; Z91.048 Other nonmedicinal substance allergy status; Z91.018 Allergy to other foods; Z91.011 Allergy to milk products; Z88.8 Allergy status to other drugs, medicaments and biological substances; Z79.899 Other long term (current) drug therapy; Z79.82 Long term (current) use of aspirin; Z20.822 Contact with and (suspected) exposure to COVID-19
CPT/HCPCS: 0241U; 36415; 36430; 71045; 80048; 80053; 81001; 83605; 83735; 83880; 84443; 85025; 86850; 86900; 86901; 86922; 93005; A9270; J7050; P9016; 93010; 99282; 99284